=== PATIENT | female | born 1955 | race Caucasian/White ===

== ENCOUNTER 2019-11-09 20:08 | Emergency (ER) | payer BC, OTHER ==
--- OUTSIDE RECORDS SUMMARY | 2019-11-09 20:10 | XMS REPORT | Continuity of Care Document ---
:1955 Author Organization [facility] t Address [address] [place] [address] Care Team Providers Name Role Phone Isrrael LÓPEZ Attending Clinician Problems This patient has no known problems. Allergies, Adverse Reactions, Alerts This patient has no known allergies or adverse reactions. Medications This patient has no known medications. Procedures This patient has no known procedures. Encounters Start End Encounter Admission Attending Care Care Encounter Source Date/Time Date/Time Type Type Clinicians Facility Department ID 2018-10-28 2018-10-28 [facility] Isrrael [facility] [id number] 13:37:02 13:59:00 [facility] [id number] Surgical [id number] Specialti [id number] [place] Results This patient has no known results.
[2019-11-09 21:15] LABS: Absolute Lymphocytes (CBC) 3.2 K/uL (0.7-4.9); Basophils % 1.1 % (0-1.3); Hematocrit 42.4 % (36.0-45.0); Lymphocytes % 35.2 % (15.3-44.8); MPV 8.9 fL (7.6-11.3); RBC Red Blood Cell Count 4.91 M/uL (3.86-4.86)
[2019-11-09 21:19] LABS: Protime INR 0.89
[2019-11-09 21:41] LABS: ALT/SGPT 26 U/L (12-78); AST/SGOT 22 U/L (15-37); Albumin 3.2 g/dL (3.4-5.0); Alkaline Phosphatase 111 U/L (45-117); BUN Blood Urea Nitrogen 18 mg/dL (7-18); Bicarbonate 27 mmol/L (21-32); Bilirubin Direct < 0.1 mg/dL (0-0.2); Bilirubin Total 0.2 mg/dL (0.2-1.0); CKMB Creatine Kinase MB 1.1 ng/mL (0.3-3.6); Creatine Phosphokinase 113 U/L (26-192); Glucose Level 104 mg/dL (74-106); Lipase 112 U/L (73-393); Magnesium 1.8 mg/dL (1.8-2.4); NT PRO-BNP 132 pg/mL (<125); Potassium 4.2 mmol/L (3.5-5.1); Protein, Total 7.3 g/dL (6.4-8.2); Sodium Level 144 mmol/L (136-145); Troponin (Emerg Dept Use Only) < 0.02 ng/mL (0.0-0.045)
--- NOTE | 2019-11-09 23:54 | EDPHYS ---
Physician Documentation [facility] Name: Genet Grjialva Age: 64 yrs Sex: Female : 1955 Arrival Date: 11/09/2019 Time: 20:13 Bed 16 Private MD: ED Physician Norris Vázquez HPI: 11/08 20:58 This 64 yrs old Female presents to ER via Ambulatory with complaints of mh7 Breathing Difficulty. 20:58 The patient has shortness of breath with light activity. Onset: The symptoms/episode mh7 began/occurred 2 week(s) ago. Duration: The symptoms are intermittent, with no pattern. The patient's shortness of breath is aggravated by exertion, is alleviated by nothing. Associated signs and symptoms: Pertinent positives: non-productive cough, dizziness, Pertinent negatives: chest pain, productive cough, diaphoresis, fever, hemoptysis, loss of consciousness, nausea, numbness in extremities, visual changes, vomiting. Severity of symptoms: At their worst the symptoms were moderate yesterday, in the emergency department the symptoms have improved moderately. The patient has experienced similar episodes in the past, several times. Patient states that she ran out of her medications about one month ago. Her PCP is no longer seeing patient's so she has not been able to get refills. She states that she has had SOB for the past 2 weeks. She has also had a non productive cough. Denies any fever, chest pain, abdominal pain, nausea, vomiting, diarrhea, dysuria, sick contacts, or recent travel.. Historical: - Allergies: 20:35 Codeine; bb - Home Meds: 20:35 Bystolic 5 mg oral tab [Active]; montelukast 10 mg oral tab [Active]; pravastatin 20 mg bb oral tab [Active]; Symbicort inhalation inhalation [Active]; hydrochlorothiazide 25 mg oral tab [Active]; omeprazole 40 mg Oral cpDR [Active]; duloxetine 20 mg oral cpDR [Active]; phentermine 37.5 mg oral tab [Active]; paroxetine HCl 10 mg oral tab [Active]; pravastatin 20 mg oral tab [Active]; - PMHx: 20:35 allergies; Hypertension; bb - Immunization history:: Adult Immunizations unknown. - Social history:: Smoking status: Patient reports the use of cigarette tobacco products, Patient/guardian denies using tobacco, the patient reports quitting approximately 1 years ago, Patient/guardian denies using alcohol, street drugs. ROS: 20:58 Constitutional: Negative for fever, chills, and weight loss, Eyes: Negative for injury, mh7 pain, redness, and discharge, ENT: Negative for injury, pain, and discharge, Neck: Negative for injury, pain, and swelling, Cardiovascular: Negative for chest pain, palpitations, and edema, Abdomen/GI: Negative for abdominal pain, nausea, vomiting, diarrhea, and constipation, Back: Negative for injury and pain, : Negative for injury, bleeding, discharge, and swelling, MS/Extremity: Negative for injury and deformity, Skin: Negative for injury, rash, and discoloration, Neuro: Negative for headache, weakness, numbness, tingling, and seizure, Psych: Negative for depression, anxiety, suicide ideation, homicidal ideation, and hallucinations, Allergy/Immunology: Negative for hives, rash, and allergies, Endocrine: Negative for neck swelling, polydipsia, polyuria, polyphagia, and marked weight changes, Hematologic/Lymphatic: Negative for swollen nodes, abnormal bleeding, and unusual bruising. Exam: 20:58 Constitutional: This is a well developed, well nourished patient who is awake, alert, mh7 and in no acute distress. Head/Face: Normocephalic, atraumatic. Eyes: Pupils equal round and reactive to light, extra-ocular motions intact. Lids and lashes normal. Conjunctiva and sclera are non-icteric and not injected. Cornea within normal limits. Periorbital areas with no swelling, redness, or edema. ENT: Nares patent. No nasal discharge, no septal abnormalities noted. Tympanic membranes are normal and external auditory canals are clear. Oropharynx with no redness, swelling, or masses, exudates, or evidence of obstruction, uvula midline. Mucous membranes moist. Neck: Trachea midline, no thyromegaly or masses palpated, and no cervical lymphadenopathy. Supple, full range of motion without nuchal rigidity, or vertebral point tenderness. No Meningismus. Chest/axilla: Normal chest wall appearance and motion. Nontender with no deformity. No lesions are appreciated. 20:58 Respiratory: Lungs have equal breath sounds bilaterally, clear to auscultation and percussion. No rales, rhonchi or wheezes noted. No increased work of breathing, no retractions or nasal flaring. Abdomen/GI: Soft, non-tender, with normal bowel sounds. No distension or tympany. No guarding or rebound. No evidence of tenderness throughout. Back: No spinal tenderness. No costovertebral tenderness. Full range of motion. Skin: Warm, dry with normal turgor. Normal color with no rashes, no lesions, and no evidence of cellulitis. MS/ Extremity: Pulses equal, no cyanosis. Neurovascular intact. Full, normal range of motion. Neuro: Awake and alert, GCS 15, oriented to person, place, time, and situation. Cranial nerves II-XII grossly intact. Motor strength 5/5 in all extremities. Sensory grossly intact. Cerebellar exam normal. Normal gait. Psych: Awake, alert, with orientation to person, place and time. Behavior, mood, and affect are within normal limits. 20:58 Cardiovascular: Rate: tachycardic, Rhythm: regular, Pulses: no pulse deficits are appreciated, Heart sounds: normal, normal S1and S2, Edema: is not appreciated, JVD: is not appreciated. Vital Signs: 20:27 BP 148 / 102; Pulse 120; Resp 20 S; Temp 98.4(O); Pulse Ox 98% on R/A; Weight 113.4 kg bb (R); Height 5 ft. 3 in. (160.02 cm) (R); Pain 7/10; 21:30 BP 117 / 88; Pulse 108; Resp 18; Pulse Ox 96% on R/A; wh 22:34 BP 129 / 84; Pulse 103; Resp 16; Pulse Ox 95% on R/A; wh 23:36 BP 129 / 64; Pulse 109; Resp 16 S; Pulse Ox 95% on R/A; bb 11/09 00:10 BP 124 / 72; Pulse 99; Resp 18; Pulse Ox 96% on R/A; wh 11/08 20:27 Body Mass Index 44.29 (113.40 kg, 160.02 cm) MDM: 11/08 20:40 Patient medically screened. [facility] 23:48 Differential diagnosis: Anemia Anxiety Reaction asthma, Bronchitis CHF exacerbation, 7 Chronic Obstructive Pulmonary Disease Myocardial Infarction pneumonia, Pneumothorax Psychogenic pulmonary edema, Pulmonary Embolism reactive airway disease. Data reviewed: vital signs, nurses notes, lab test result(s), cardiac enzymes, CBC, electrolytes, urinalysis, EKG, radiologic studies, plain films. Data interpreted: environmental monitoring specialist: rate is 96 beats/min, rhythm is normal sinus rhythm, regular, Interpretation: normal rate, normal rhythm, Pulse oximetry: on room air is 96 %. Interpretation: normal. Counseling: I had a detailed discussion with the patient and/or guardian regarding: the historical points, exam findings, and any diagnostic results supporting the discharge/admit diagnosis, lab results, radiology results, the need for outpatient follow up, to return to the emergency department if symptoms worsen or persist or if there are any questions or concerns that arise at home. Response to treatment: the patient's symptoms have resolved after treatment, the patient's blood pressure is in an acceptable range, mental status has returned to baseline, the patient no longer shows bradycardia, the patient is not short of breath, the patient is not tachycardic, the patient's pain is gone, the patient's temperature has normalized, the patient is now symptom free. 11/09 07:26 ED course: Well appearing, NAD, VSS. Discussed all test results with the patient. She [facility] requests to be discharged from the ED. She agreed to return to the ED if worsening of symptoms or other concerns.. 11/08 20:42 Order name: Blood Culture Adult (2) [facility] 11/08 20:42 Order name: BMP; Complete Time: 21:56 [facility] 11/08 20:42 Order name: CBC with Diff; Complete Time: 21:56 [facility] 11/08 20:42 Order name: Ckmb; Complete Time: 21:56 [facility] 11/08 20:42 Order name: CPK; Complete Time: 21:56 [facility] 11/08 20:42 Order name: D-Dimer; Complete Time: 21:56 [facility] 11/08 20:42 Order name: Hepatic Function; Complete Time: 21:56 [facility] 11/08 20:42 Order name: Lipase; Complete Time: 21:56 [facility] 11/08 20:42 Order name: Magnesium; Complete Time: 21:56 [facility] 11/08 20:42 Order name: NT PRO-BNP; Complete Time: 21:56 [facility] 11/08 20:42 Order name: PT-INR; Complete Time: 21:56 [facility] 11/08 20:42 Order name: Ptt, Activated; Complete Time: 21:56 [facility] 11/08 20:42 Order name: Troponin (emerg Dept Use Only); Complete Time: 21:56 [facility] 11/08 20:42 Order name: Chest Single View XRAY [facility] 11/08 20:42 Order name: EKG; Complete Time: 20:43 [facility] 11/08 20:42 Order name: Cardiac monitoring; Complete Time: 21:00 [facility] 11/08 20:42 Order name: EKG - Nurse/Tech; Complete Time: 21:00 [facility] 11/08 20:42 Order name: IV Saline Lock; Complete Time: 21:00 [facility] 11/08 20:42 Order name: Labs collected and sent; Complete Time: 21:00 [facility] 11/08 20:42 Order name: O2 Per Protocol; Complete Time: 21:00 [facility] 11/08 20:42 Order name: O2 Sat Monitoring; Complete Time: 21:00 [facility] Administered Medications: No medications were administered Disposition: 07:26 Co-signature as Attending Physician, Norris Vázquez MD. [facility] Disposition: 11/09/19 23:53 Discharged to Home. Impression: Dyspnea, Medication Noncompliance. - Condition is Stable. - Discharge Instructions: Shortness of Breath, [id number]. - Prescriptions for Bystolic 5 mg Oral tablet - take 1 tablet by ORAL route once daily; 30 tablet. Symbicort 80- 4.5 mcg/actuation Inhalation HFA aerosol inhaler - inhale 2 puff by INHALATION route 2 times per day; 1 unit. montelukast 10 mg Oral tablet - take 1 tablet by ORAL route once daily; 30 tablet. omeprazole 40 mg Oral capsule,delayed release(DR/EC) - take 1 capsule by ORAL route once daily; 15 capsule. Hydrochlorothiazide 25 mg Oral Tablet - take 1 tablet by ORAL route once daily .; 30 tablet. - Medication Reconciliation Form, Thank You Letter, Antibiotic Education, Prescription Opioid Use form. - Follow up: Abhi Frank MD; When: 2 - 3 days; Reason: Worsening of condition, Recheck today's complaints. - Problem is an ongoing problem. - Symptoms have improved. Signatures: Dispatcher [employer] EDDebo Goldsmith RN RN bb Habalo, Winsy wh Holmes, Maurice, MD MD [facility] Corrections: (The following items were deleted from the chart) 00:17 11/08 23:53 11/09/2019 23:53 Discharged to Home. Impression: Dyspnea; Medication wh Noncompliance. Condition is Stable. Forms are Medication Reconciliation Form, Thank You Letter, Antibiotic Education, Prescription Opioid Use. Follow up: Abhi Frank; When: 2 - 3 days; Reason: Worsening of condition, Recheck today's complaints. Problem is an ongoing problem. Symptoms have improved. mh7
--- NOTE | 2019-11-09 23:54 | ER ---
Nurse's Notes [facility] Name: Genet Grijalva Age: 64 yrs Sex: Female : 1955 Arrival Date: 11/09/2019 Time: 20:13 Bed 16 Private MD: Diagnosis: Dyspnea;Medication Noncompliance Presentation: 11/08 20:27 Chief complaint: Patient states: she has been having difficulty breathing for weeks she bb has been out of her medicine for a month and does not have a PCP she also feels like there is a stick in her ear poking into her brain making her feel dizzy. Coronavirus screen: Client presents with at least one sign or symptom that may indicate coronavirus-19. Standard/surgical mask placed on the client. Ebola Screen: No symptoms or risks identified at this time. Initial Sepsis Screen: Does the patient meet any 2 criteria? No. Patient's initial sepsis screen is negative. Does the patient have a suspected source of infection? No. Patient's initial sepsis screen is negative. Risk Assessment: Do you want to hurt yourself or someone else? Patient reports no desire to harm self or others. Onset of symptoms was September 2019. 20:27 Method Of Arrival: Ambulatory bb 20:27 Acuity: DEO 3 bb Triage Assessment: 20:30 Respiratory: Onset: The symptoms/episode began/occurred at an unknown time. the patient wh reports symptoms have resolved. Historical: - Allergies: 20:35 Codeine; bb - Home Meds: 20:35 Bystolic 5 mg oral tab [Active]; montelukast 10 mg oral tab [Active]; pravastatin 20 mg bb oral tab [Active]; Symbicort inhalation inhalation [Active]; hydrochlorothiazide 25 mg oral tab [Active]; omeprazole 40 mg Oral cpDR [Active]; duloxetine 20 mg oral cpDR [Active]; phentermine 37.5 mg oral tab [Active]; paroxetine HCl 10 mg oral tab [Active]; pravastatin 20 mg oral tab [Active]; - PMHx: 20:35 allergies; Hypertension; bb - Immunization history:: Adult Immunizations unknown. - Social history:: Smoking status: Patient reports the use of cigarette tobacco products, Patient/guardian denies using tobacco, the patient reports quitting approximately 1 years ago, Patient/guardian denies using alcohol, street drugs. Screenin:00 Abuse screen: Denies threats or abuse. Denies injuries from another. Nutritional wh screening: No deficits noted. Tuberculosis screening: No symptoms or risk factors identified. Fall Risk None identified. Assessment: 20:30 General: Appears well groomed, Behavior is calm, cooperative, appropriate for age. wh Pain: Denies pain. Neuro: Level of Consciousness is awake, alert, obeys commands, Oriented to person, place, time, situation, Appropriate for age Reports dizziness. Cardiovascular: Heart tones S1 S2 Rhythm is sinus tachycardia. Respiratory: Reports shortness of breath cough that is Airway is patent Respiratory effort is even, unlabored, Respiratory pattern is regular, symmetrical, Breath sounds are clear bilaterally. GI: Abdomen is round non-distended. : No signs and/or symptoms were reported regarding the genitourinary system. EENT: No signs and/or symptoms were reported regarding the EENT system. Derm: Skin is intact, is healthy with good turgor, Skin is pink, warm \T\ dry. normal. Musculoskeletal: Circulation, motion, and sensation intact. 21:31 Reassessment: No changes from previously documented assessment. Patient and/or family wh updated on plan of care and expected duration. Pain level reassessed. Patient is alert, oriented x 3, equal unlabored respirations, skin warm/dry/pink. 22:32 Reassessment: Patient and/or family updated on plan of care and expected duration. Pain wh level reassessed. Patient is alert, oriented x 3, equal unlabored respirations, skin warm/dry/pink. 11/09 00:10 Reassessment: Patient and/or family updated on plan of care and expected duration. Pain wh level reassessed. Patient is alert, oriented x 3, equal unlabored respirations, skin warm/dry/pink. Vital Signs: 11/08 20:27 BP 148 / 102; Pulse 120; Resp 20 S; Temp 98.4(O); Pulse Ox 98% on R/A; Weight 113.4 kg bb (R); Height 5 ft. 3 in. (160.02 cm) (R); Pain 7/10; 21:30 BP 117 / 88; Pulse 108; Resp 18; Pulse Ox 96% on R/A; wh 22:34 BP 129 / 84; Pulse 103; Resp 16; Pulse Ox 95% on R/A; wh 23:36 BP 129 / 64; Pulse 109; Resp 16 S; Pulse Ox 95% on R/A; 11/09 00:10 BP 124 / 72; Pulse 99; Resp 18; Pulse Ox 96% on R/A; 11/08 20:27 Body Mass Index 44.29 (113.40 kg, 160.02 cm) ED Course: 11/08 20:13 Patient arrived in ED. 20:17 Norris Vázquez MD is Attending Physician. [facility] 20:25 Merced Gauthier is Primary Nurse. 20:30 Triage completed. bb 20:35 Arm band placed on Patient placed in an exam room, on a stretcher, on cardiac cath lab radiology technologist, bb on pulse oximetry. EKG completed in triage. Results shown to MD. 20:50 No provider procedures requiring assistance completed. Inserted saline lock: 20 gauge wh in left antecubital area, using aseptic technique. Blood collected. 21:00 Patient has correct armband on for positive identification. Placed in gown. Bed in low wh position. Call light in reach. Side rails up X 1. pasting machine offbearer on. Pulse ox on. NIBP on. 22:43 Chest Single View XRAY In Process Unspecified. EDWV 23:52 Abhi Frank MD is Referral Physician. [facility] 11/09 00:15 IV discontinued, intact, bleeding controlled, No redness/swelling at site. Administered Medications: No medications were administered Outcome: 11/08 23:53 Discharge ordered by . [facility] 11/09 00:15 Discharged to home ambulatory. Condition: stable Discharge instructions given to patient, Instructed on discharge instructions, follow up and referral plans. medication usage, POC Demonstrated understanding of instructions, follow-up care, medications, POC Prescriptions given X X5 00:17 Patient left the ED. Signatures: Dispatcher [employer] EDMS Elsa León Brenda, RN RN Merced Jasso Norris Vázquez MD MD [facility]
--- NOTE | 2019-11-10 13:38 | RAD REPORT ---
EXAM DESCRIPTION: RAD - Chest Single View - 11/09/2019 10:42 pm CLINICAL HISTORY: SOB COMPARISON: None. FINDINGS: Single frontal radiograph view of the chest. Large body habitus. Cardiomediastinal silhouette: Normal size and contour. Lungs: No consolidation, pneumothorax, or pleural effusion. Bones: No acute osseous abnormality. Leads overlie the chest. Upper abdomen: No abnormality identified. IMPRESSION: 1. No acute pulmonary process identified. Electronically signed by: Jesse Gonzalez 11/09/2019 10:53 PM CDT Due to temporary technical issues with the PACS/Fluency reporting system, reports are being signed by the in house radiologist without review as a courtesy to ensure prompt reporting. The interpreting r adiologist is fully responsible for the content of the report.
== END 2019-11-10 00:17 | disposition home or self-care (01) ==
LOC: ER 20:08
DX: R06.00 Dyspnea, unspecified (principal); I10 Essential (primary) hypertension; J30.2 Other seasonal allergic rhinitis; F17.210 Nicotine dependence, cigarettes, uncomplicated; Z91.14 Patient's other noncompliance with medication regimen; Z88.6 Allergy status to analgesic agent
CPT/HCPCS: 36415; 71045; 80048; 80076; 82550; 82553; 83690; 83735; 83880; 84484; 85025; 85379; 85610; 85730; 87040; 93005; 99284

== ENCOUNTER 2021-10-04 19:45 | Emergency (ER) | payer OTHER ==
[2021-10-04] MEDS ORDERED: NA CHLORIDE 0.9% 1,000 ML ONE (20:34)
[2021-10-04] MEDS ORDERED: ONDANSETRON 4 MG/2 ML VIAL ONE (20:35)
[2021-10-04] MEDS ORDERED: FAMOTIDINE 20 MG/2 ML VIAL IV ONE (20:36)
[2021-10-04 20:57] LABS: Absolute Lymphocytes (CBC) 2.4 K/uL (0.7-4.9); Hematocrit 44.7 % (36.0-45.0); Lymphocytes % 26.3 % (15.3-44.8); MCV 86.7 fL (80-100); MPV 8.5 fL (7.6-11.3); RBC Red Blood Cell Count 5.16 M/uL (3.86-4.86)
[2021-10-04 21:16] LABS: Albumin 3.3 g/dL (3.4-5.0); Bilirubin Total 0.4 mg/dL (0.2-1.0); Potassium 3.4 mmol/L (3.5-5.1); Protein, Total 7.3 g/dL (6.4-8.2)
--- NOTE | 2021-10-04 21:51 | RAD REPORT ---
EXAM DESCRIPTION: RAD - Chest Single View - 10/04/2021 9:46 pm CLINICAL HISTORY: COUGH Chest pain. COMPARISON: Chest Pa And Lat (2 Views) dated 12/04/2020; Chest Single View dated 11/09/2019 FINDINGS: Portable technique limits examination quality. The lungs are grossly clear. The heart is normal in size. No displaced fractures. IMPRESSION: No acute intrathoracic process suspected.
[2021-10-05] MEDS ORDERED: POTASSIUM 25 MEQ EFFERV TAB ONE (00:45)
[2021-10-05 00:51] LABS: Urine Blood Negative (Negative); Urine Glucose Negative (Negative); Urine Protein Negative (Negative); Urine Specific Gravity 1.015 (1.005-1.030); Urine pH 5.5 (5.0-7.0)
[2021-10-05] MEDS ORDERED: FENTANYL CITR 100 MCG/2 ML ONE (01:23)
--- NOTE | 2021-10-05 01:30 | EDPHYS ---
Physician Documentation [facility] Name: Genet Grijalva Age: 66 yrs Sex: Female : 1955 Arrival Date: 10/04/2021 Time: 19:53 Bed 18 Private MD: ED Physician Norris Vázquez HPI: 10/04 20:20 This 66 yrs old Female presents to ER via Ambulatory with complaints of Breathing cp Difficulty, Nausea, Chest Pain, General Weakness. 20:20 The patient has shortness of breath at rest. cp 20:20 Onset: The symptoms/episode began/occurred several days ago. cp 20:20 Duration: The symptoms are continuous, and are steadily getting worse. Associated signs cp and symptoms: Pertinent positives: chest pain, non-productive cough, nausea, Pertinent negatives: diaphoresis, dizziness, fever, hemoptysis. Severity of symptoms: in the emergency department the symptoms are unchanged despite home interventions. Historical: - Allergies: 20:14 Codeine; vc1 - Home Meds: 20:19 Bystolic 5 mg Oral tab [Active]; duloxetine 20 mg Oral cpDR [Active]; vc1 hydrochlorothiazide 25 mg Oral tab [Active]; montelukast 10 mg Oral tab [Active]; omeprazole 40 mg Oral cpDR [Active]; paroxetine HCl 10 mg Oral tab [Active]; phentermine 37.5 mg Oral tab [Active]; pravastatin 20 mg Oral tab [Active]; Symbicort inhalation [Active]; - PMHx: 20:14 allergies; Hypertension; vc1 - PSHx: 20:14 Cholecystectomy; Hysterectomy; vc1 - Immunization history:: Adult Immunizations up to date, Client reports receiving the 2nd dose of the Covid vaccine. - Social history:: Smoking status: Patient denies any tobacco usage or history of. ROS: 20:25 Constitutional: Negative for body aches, chills, fever, poor PO intake. cp 20:25 Eyes: Negative for injury, pain, redness, and discharge. cp 20:25 ENT: Negative for drainage from ear(s), ear pain, difficulty swallowing, difficulty handling secretions. 20:25 Cardiovascular: Positive for chest pain, Negative for edema, palpitations. 20:25 Respiratory: Positive for cough, with no reported sputum, shortness of breath. 20:25 Abdomen/GI: Positive for abdominal pain, nausea, Negative for vomiting, diarrhea, constipation. 20:25 Back: Positive for flank pain, on the right. 20:25 Skin: Negative for cellulitis, rash. 20:25 Neuro: Positive for weakness, Negative for altered mental status, numbness, syncope. 20:25 All other systems are negative. Exam: 20:07 ECG was reviewed by the Attending Physician. cp 20:30 Constitutional: The patient appears in no acute distress, alert, awake, cp non-diaphoretic, non-toxic, well developed, well nourished, obese, uncomfortable. 20:30 Head/Face: Normocephalic, atraumatic. cp 20:30 Eyes: Periorbital structures: appear normal, Conjunctiva: normal, no exudate, no injection, Sclera: no appreciated abnormality, Lids and lashes: appear normal, bilaterally. 20:30 ENT: External ear(s): are unremarkable, Nose: is normal, Mouth: Lips: moist, Oral mucosa: pink and intact, moist, Posterior pharynx: Airway: no evidence of obstruction, patent. 20:30 Neck: ROM/movement: is normal, is supple, without pain, no range of motions limitations, no meningismus. 20:30 Chest/axilla: Inspection: normal. 20:30 Cardiovascular: Rate: tachycardic, Rhythm: regular, Edema: is not appreciated, JVD: is not appreciated. 20:30 Respiratory: the patient does not display signs of respiratory distress, Respirations: normal, no use of accessory muscles, no retractions, labored breathing, is not present, Breath sounds: bronchial sounds, that are mild, are heard diffusely, stridor, is not appreciated, wheezing: is not appreciated. 20:30 Abdomen/GI: Inspection: obese Bowel sounds: active, all quadrants, Palpation: abdomen is soft and non-tender, in all quadrants. 20:30 Back: pain, that is moderate, of the right flank. 20:30 Skin: cellulitis, is not appreciated, no rash present. 20:30 Neuro: Orientation: to person, place \\T\\ time. Mentation: is normal, Motor: moves all fours, strength is normal, Sensation: is normal. Vital Signs: 20:11 BP 121 / 71; Pulse 111; Resp 24; Temp 98.1(O); Pulse Ox 94% on R/A; Weight 113.4 kg; vc1 Height 5 ft. 3 in. (160.02 cm); Pain 8/10; 21:09 BP 117 / 64; Pulse 109; Resp 14; Pulse Ox 91% on R/A; vc1 22:58 BP 120 / 81; Pulse 108; Resp 19; Pulse Ox 92% on R/A; vc1 10/05 01:28 BP 130 / 92; Pulse 100; Resp 18; Pulse Ox 92% on R/A; vc1 10/04 20:11 Body Mass Index 44.29 (113.40 kg, 160.02 cm) vc1 MDM: 10/04 20:14 Patient medically screened. cp 21:00 Differential diagnosis: Bronchitis CHF exacerbation, Chronic Obstructive Pulmonary cp Disease pneumonia, Pneumothorax pulmonary edema, Pulmonary Embolism Sepsis. 10/05 01:29 Data reviewed: vital signs, nurses notes, lab test result(s), radiologic studies, CT cp scan, plain films. 01:29 Test interpretation: by ED physician or midlevel provider: plain radiologic studies. cp Counseling: I had a detailed discussion with the patient and/or guardian regarding: the historical points, exam findings, and any diagnostic results supporting the discharge/admit diagnosis, lab results, radiology results, the need for outpatient follow up, an producer assistant, to return to the emergency department if symptoms worsen or persist or if there are any questions or concerns that arise at home. Response to treatment: the patient's symptoms have markedly improved after treatment. 10/04 20:17 Order name: CBC with Diff; Complete Time: 21:22 cp 10/04 22:10 Interpretation: Normal except: RBC 5.16. cp 10/04 20:17 Order name: CMP; Complete Time: 21:22 cp 10/04 22:10 Interpretation: Normal except: K 3.4; GLUC 189; BUN 22; GFR 47; ALB 3.3. cp 10/04 20:17 Order name: Lipase; Complete Time: 21:22 cp 10/04 20:17 Order name: Urine Microscopic Only cp 10/04 20:17 Order name: COVID-19 SARS RT PCR (Document "Date of Onset" if Symptomatic); Complete cp Time: 00:31 10/04 20:17 Order name: Influenza Screen (a \\T\\ B); Complete Time: 21:22 cp 10/04 20:17 Order name: XRAY Chest (1 view); Complete Time: 22:10 cp 10/04 22:12 Order name: CT Chest For PE Angio cp 10/04 22:12 Order name: CT Abd/Pelvis - IV Contrast Only cp 10/05 00:51 Order name: Urine Dipstick-Ancillary; Complete Time: 00:58 EDMS 10/05 01:04 Order name: Urine --Ancillary (enter results) 10/04 20:17 Order name: IV Saline Lock; Complete Time: 20:52 cp 10/04 20:17 Order name: Labs collected and sent; Complete Time: 20:52 cp 10/04 20: Order name: Urine Dipstick-Ancillary (obtain specimen); Complete Time: 00:52 cp 10/05 00:21 Order name: PO challenge; Complete Time: 00:28 cp EC/17 20:07 Rate is 110 beats/min. Rhythm is regular. ME interval is normal. QRS interval is cp prolonged at 120 msec. QT interval is normal. T waves are Inverted in leads aVR, V2, V3. Interpreted by me. Reviewed by me. Administered Medications: 20:35 Drug: Pepcid (famotidine) 20 mg Route: IVP; Site: right antecubital; vc1 21:26 Follow up: Response: No adverse reaction; Marked relief of symptoms vc1 20:51 Drug: NS 0.9% 1000 ml Route: IV; Rate: 500 bolus; Site: right antecubital; vc1 20:52 Drug: Zofran (Ondansetron) 4 mg Route: IVP; Site: right antecubital; vc1 21:26 Follow up: Response: No adverse reaction; Marked relief of symptoms; Nausea is decreasedvc1 21:22 Drug: Xopenex (levalbuterol) (3) 0.63 mg Route: Inhalation; vc1 21:22 Drug: SOLU-Medrol (methylPrednisoLONE) 125 mg Route: IVP; Site: right antecubital; vc1 21:25 Not Given (Duplicate Order): SOLU-Medrol (methylPrednisoLONE) 125 mg IVP once vc1 10/05 00:45 Drug: Potassium Effervescent Tablet 50 mEq Route: PO; vc1 01:28 Not Given (Pt driving homee): fentaNYL (PF) 25 mcg IVP once vc1 Disposition: 07:09 Co-signature as Attending Physician, Norris Vázquez MD. 7 Disposition Summary: 10/05/21 01:29 Discharge Ordered Location: Home cp Problem: new cp Symptoms: have improved cp Condition: Stable cp Diagnosis - COPD/ Chronic obstructive pulmonary disease with (acute) exacerbation cp - Dorsalgia, unspecified cp Followup: cp - With: Private Physician - When: 1 - 2 days - Reason: Recheck today's complaints Discharge Instructions: - Discharge Summary Sheet cp - Acute Back Pain, Adult cp - Chronic Obstructive Pulmonary Disease Exacerbation cp Forms: - Medication Reconciliation Form cp - Thank You Letter cp - Antibiotic Education cp - Prescription Opioid Use cp Prescriptions: - Cyclobenzaprine 10 mg Oral Tablet - take 1 tablet by ORAL route every 8 hours As needed; 20 tablet; Refills: 0, cp Product Selection Permitted - Prednisone 20 mg Oral Tablet - take 2 tablets by ORAL route once daily for 5 days; 10 tablet; Refills: 0, cp Product Selection Permitted Signatures: Dispatcher [employer] EDOH Matt Delgado PA PA cp Norris Vázquez MD MD [facility] Nelly Hutchins RN RN vc1 Corrections: (The following items were deleted from the chart) 10/04 20:15 20:14 PSHx: None; vc1 vc1
--- NOTE | 2021-10-05 01:30 | ER ---
Nurse's Notes [facility] Name: Genet Grijalva Age: 66 yrs Sex: Female : 1955 Arrival Date: 10/04/2021 Time: 19:53 Bed 18 Private MD: Diagnosis: COPD/ Chronic obstructive pulmonary disease with (acute) exacerbation;Dorsalgia, unspecified Presentation: 10/04 20:11 Chief complaint: Patient states: "I have felt sick for the last couple of weeks but the vc1 last few days I can't breath, I have a cough, horrible headache, my chest and side hurts.". Coronavirus screen: Vaccine status: Patient reports receiving the 2nd dose of the covid vaccine. Moderna cough unrelated to allergies, difficulty breathing, headache, muscle pain, shortness of breath, Client presents with at least one sign or symptom that may indicate coronavirus-19. Standard/surgical mask placed on the client. Provider contacted for isolation considerations. Ebola Screen: No symptoms or risks identified at this time. Initial Sepsis Screen: Does the patient meet any 2 criteria? RR > 20 per min. HR > 90 bpm. Yes Does the patient have a suspected source of infection? Yes: Productive cough/pneumonia Acute abdominal pain If YES to both, name of provider notified: Matt LYNNE Risk Assessment: Do you want to hurt yourself or someone else? Patient reports no desire to harm self or others. Onset of symptoms is unknown. 20:11 Method Of Arrival: Ambulatory vc1 20:11 Acuity: DEO 3 vc1 Triage Assessment: 20:16 General: Appears in no apparent distress. Behavior is cooperative, appropriate for age, vc1 anxious. Pain: Complains of pain in Head, chest, right flank, upper right abdomen Pain currently is 8 out of 10 on a pain scale. Quality of pain is described as sharp, stabbing, Pain began gradually. EENT: No deficits noted. Neuro: Level of Consciousness is awake, alert, obeys commands, Oriented to person, place, time, situation, Appropriate for age Reports headache. Cardiovascular: Capillary refill < 3 seconds Patient's skin is warm and dry. Respiratory: Reports shortness of breath at rest cough that is Airway is patent Respiratory effort is even, labored, Respiratory pattern is tachypnea Onset: The symptoms/episode began/occurred 3 days ago, the patient has moderate shortness of breath. GI: Reports upper abdominal pain, nausea, vomiting. : Reports pain in right flank(s), upper quadrant(s). Derm: No deficits noted. Musculoskeletal: No deficits noted. Historical: - Allergies: 20:14 Codeine; vc1 - Home Meds: 20:19 Bystolic 5 mg Oral tab [Active]; duloxetine 20 mg Oral cpDR [Active]; vc1 hydrochlorothiazide 25 mg Oral tab [Active]; montelukast 10 mg Oral tab [Active]; omeprazole 40 mg Oral cpDR [Active]; paroxetine HCl 10 mg Oral tab [Active]; phentermine 37.5 mg Oral tab [Active]; pravastatin 20 mg Oral tab [Active]; Symbicort inhalation [Active]; - PMHx: 20:14 allergies; Hypertension; vc1 - PSHx: 20:14 Cholecystectomy; Hysterectomy; vc1 - Immunization history:: Adult Immunizations up to date, Client reports receiving the 2nd dose of the Covid vaccine. - Social history:: Smoking status: Patient denies any tobacco usage or history of. Screenin:15 Abuse screen: Denies threats or abuse. Nutritional screening: No deficits noted. vc1 Tuberculosis screening: No symptoms or risk factors identified. Fall Risk None identified. Assessment: 20:18 Cardiovascular: Rhythm is sinus tachycardia. Respiratory: Respiratory effort is even, vc1 labored, Respiratory pattern is tachypnea Breath sounds with wheezes bilaterally. 21:25 Reassessment: Patient and/or family updated on plan of care and expected duration. Pain vc1 level reassessed. Patient is alert, oriented x 3, equal unlabored respirations, skin warm/dry/pink. Pt still SOB, nausea has decreased. 22:57 Reassessment: Patient and/or family updated on plan of care and expected duration. Pain vc1 level reassessed. Patient is alert, oriented x 3, equal unlabored respirations, skin warm/dry/pink. Patient states symptoms have improved. 10/05 01:00 Reassessment: Patient and/or family updated on plan of care and expected duration. Pain vc1 level reassessed. Patient is alert, oriented x 3, equal unlabored respirations, skin warm/dry/pink. Patient states feeling better. Patient states symptoms have improved. 01:57 Reassessment: Patient and/or family updated on plan of care and expected duration. Pain vc1 level reassessed. Patient is alert, oriented x 3, equal unlabored respirations, skin warm/dry/pink. Patient states feeling better. Patient states symptoms have improved. Vital Signs: 10/04 20:11 BP 121 / 71; Pulse 111; Resp 24; Temp 98.1(O); Pulse Ox 94% on R/A; Weight 113.4 kg; vc1 Height 5 ft. 3 in. (160.02 cm); Pain 8/10; 21:09 BP 117 / 64; Pulse 109; Resp 14; Pulse Ox 91% on R/A; vc1 22:58 BP 120 / 81; Pulse 108; Resp 19; Pulse Ox 92% on R/A; vc1 10/05 01:28 BP 130 / 92; Pulse 100; Resp 18; Pulse Ox 92% on R/A; vc1 10/04 20:11 Body Mass Index 44.29 (113.40 kg, 160.02 cm) vc1 ED Course: 10/04 19:53 Patient arrived in ED. [id number] 20:08 Matt Delgado PA is PHCP. cp 20:08 Norris Vázquez MD is Attending Physician. cp 20:14 Triage completed. vc1 20:18 Arm band placed on right wrist. vc1 20:19 Patient has correct armband on for positive identification. Client placed on continuous vc1 cardiac and pulse oximetry monitoring. NIBP monitoring applied. 20:35 Inserted saline lock: 22 gauge in right antecubital area, using aseptic technique. vc1 Blood collected. 20:51 Nelly Hutchins, RN is Primary Nurse. vc1 21:15 Oxygen administration via nasal cannula \\T\\ 2L/min. vc1 21:24 Response to oxygen therapy: symptoms improved. vc1 21:47 XRAY Chest (1 view) In Process Unspecified. EDMS 22:55 CT Chest For PE Angio In Process Unspecified. EDMS 22:55 CT Abd/Pelvis - IV Contrast Only In Process Unspecified. EDMS 10/05 01:56 No provider procedures requiring assistance completed. IV discontinued, intact, vc1 bleeding controlled, No redness/swelling at site. Pressure dressing applied. Administered Medications: 10/04 20:35 Drug: Pepcid (famotidine) 20 mg Route: IVP; Site: right antecubital; vc1 21:26 Follow up: Response: No adverse reaction; Marked relief of symptoms vc1 20:51 Drug: NS 0.9% 1000 ml Route: IV; Rate: 500 bolus; Site: right antecubital; vc1 20:52 Drug: Zofran (Ondansetron) 4 mg Route: IVP; Site: right antecubital; vc1 21:26 Follow up: Response: No adverse reaction; Marked relief of symptoms; Nausea is decreasedvc1 21:22 Drug: Xopenex (levalbuterol) (3) 0.63 mg Route: Inhalation; vc1 21:22 Drug: SOLU-Medrol (methylPrednisoLONE) 125 mg Route: IVP; Site: right antecubital; vc1 21:25 Not Given (Duplicate Order): SOLU-Medrol (methylPrednisoLONE) 125 mg IVP once vc1 10/05 00:45 Drug: Potassium Effervescent Tablet 50 mEq Route: PO; vc1 01:28 Not Given (Pt driving homee): fentaNYL (PF) 25 mcg IVP once vc1 Medication: 10/04 20:19 VIS not applicable for this client. vc1 Outcome: 10/05 01:29 Discharge ordered by . cp 01:56 Discharged to home ambulatory. vc1 01:56 Condition: good 01:56 Discharge instructions given to patient, Instructed on discharge instructions, follow up and referral plans. medication usage, Demonstrated understanding of instructions, follow-up care, medications, Prescriptions given X 2. 01:57 Patient left the ED. vc1 Signatures: Dispatcher [employer] EDMS Matt Delgado PA PA cp Jeffries, Jennifer [id number] Nelly Hutchins RN RN vc1 Corrections: (The following items were deleted from the chart) 10/04 20:15 20:14 PSHx: None; vc1 vc1 21:25 21:22 SOLU-Medrol (methylPrednisoLONE) 125 mg IVP in right antecubital vc1 vc1
[2021-10-05] MEDS ORDERED: LIDOCAINE 4% PATCH ONE (01:44)
[2021-10-05 02:04] VITALS: TEMP 98.1
[2021-10-05 02:07] VITALS: O2SAT 92
[2021-10-05 02:14] VITALS: BP 130/92
[2021-10-05 04:53] LABS: Urine Specific Gravity/Preg 1.015 (1.005-1.030)
--- NOTE | 2021-10-05 12:41 | EKG ---
Test Date: 2021-10-04 Test Time: 20:02:31 Radio Director: HEIDI MEASUREMENT RESULTS: Intervals: Rate: 110 [place]: 160 QRSD: 120 QT: 342 QTc: 462 [place]: P: 56 [place]: 160 QRS: 3 T: 38 INTERPRETIVE STATEMENTS: Sinus tachycardia Low voltage QRS Right bundle branch block Abnormal ECG Compared to ECG 11/09/2019 20:29:30 Low QRS voltage now present Myocardial infarct finding no longer present Electronically Signed On 10-05-21 12:39:40 CDT by Buck Holly
--- NOTE | 2021-10-05 14:52 | RAD REPORT ---
EXAM DESCRIPTION: CT - Chest For Pe Angio - 10/05/2021 6:40 am CLINICAL HISTORY: Chest pain. COMPARISON: Chest radiograph from November 09, 2019. TECHNIQUE: CTA of the chest was performed following intravenous administration of iodinated contrast . Axial soft tissue and lung window, and coronal and sagittal soft tissue window reconstructions were created and sent to PACS. 3D postprocessing was performed on an independent workstation, with images sent to PACS for subsequen t review. This exam was performed according to our departmental dose-optimization program, which includes autom ated exposure control, adjustment of the mA and/or kV according to patient size and/or use of iterati ve reconstruction technique. FINDINGS: Vascular: The pulmonary arteries are well-opacified to the segmental level. No CT evidence of acute pulmonary thromboembolism. No evidence of aortic aneurysm or dissection. Lungs and pleura: No pulmonary consolidation. No pleural effusion. No pneumothorax. Mediastinum and neck: Minimally prominent mediastinal and left hilar lymph nodes. Unremarkable appear ance of the thyroid gland. Cardiac: No cardiomegaly or pericardial effusion. Moderate amount of coronary artery calcifications. Abdomen: Hepatic steatosis. Cholecystectomy. Musculoskeletal: No concerning osseous abnormality. IMPRESSION: 1. No CTA evidence of acute pulmonary thromboembolism. 2. No pulmonary infiltrate or pleural effusions. 3. Nonspecific minimal prominence of the mediastinal and left hilar lymph nodes. Electronically signed by: Samanta Briones MD 10/04/2021 11:09 PM CDT Due to temporary technical issues with the PACS/Fluency reporting system, reports are being signed by the in house radiologists without review as a courtesy to insure prompt reporting. The interpreting radiologist is fully responsible for the content of the report.
--- NOTE | 2021-10-05 14:54 | RAD REPORT ---
EXAM DESCRIPTION: CT - Abdomen Pelvis W Contrast - 10/05/2021 6:39 am CLINICAL HISTORY: 66 years Female, Abdominal pain, acute, nonlocalized TECHNIQUE: Helical CT axial images are obtained from the lung bases to the pubic symphysis with IV c ontrast. No oral contrast was administered. Multiplanar reconstruction. This exam was performed accor ding to our departmental dose-optimization program, which includes automated exposure control, adjust ment of the mA and/or kV according to patient size and/or use of iterative reconstruction technique. COMPARISON: None. FINDINGS: LUNG BASES: No basilar consolidation or effusions. LIVER: Normal in size. Moderate diffuse decreased attenuation. No focal masses. HEPATOBILIARY: Status post cholecystectomy. No intra- or extrahepatic ductal dilatation. SPLEEN: Normal size. PANCREAS: Normal size and contour. No focal mass. ADRENAL GLANDS: Normal size. No adrenal masses. KIDNEYS: Bilateral kidneys are normal in size without obstructing calculi or hydronephrosis. No nep hrolithiasis. Left upper pole 1.6 cm simple renal cyst, no further workup is warranted. Posterior rig ht midpole cortical fat-containing 1.4 cm lesion compatible with angiomyolipoma versus focal cortical defect. BOWEL AND MESENTERY: No small or large bowel dilatation. No colonic diverticulosis. Normal appendix . No abnormal mesenteric lymphadenopathy. No free fluid or pneumoperitoneum. RETROPERITONEUM: Normal caliber abdominal aorta without aneurysm. No abnormal retroperitoneal lymphad enopathy. PELVIS: Urinary bladder is suboptimally distended. Status post hysterectomy. ABDOMINAL WALL: Tiny umbilical fat-containing hernia. BONES: No suspicious osseous lytic or blastic lesions seen. IMPRESSION: 1. No acute intra-abdominal or pelvic disease. 2. Moderate hepatic steatosis. 3. Status post cholecystectomy and hysterectomy. 4. 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 Electronically signed by: Herve Rachel MD 10/04/2021 11:46 PM CDT Due to temporary technical issues with the PACS/Fluency reporting system, reports are being signed by the in house radiologists without review as a courtesy to insure prompt reporting. The interpreting radiologist is fully responsible for the content of the report.
== END 2021-10-05 01:57 | disposition home or self-care (01) ==
LOC: ER 19:45
DX: J44.1 Chronic obstructive pulmonary disease with (acute) exacerbation (principal); M54.9 Dorsalgia, unspecified; I10 Essential (primary) hypertension; Z88.5 Allergy status to narcotic agent
CPT/HCPCS: 93005; 85025; 36415; 81025; 83690; 80053; 87804 ×2; 71275; 74177; 71045; U0003; Q9967; J3010; J2001; J7030; J2405; J3490; 81003; 81015; 96374; 96375; 99285

== ENCOUNTER 2021-11-15 07:39 | Inpatient (IN) | payer OTHER ==
--- OUTSIDE RECORDS SUMMARY | 2021-11-15 07:42 | XMS REPORT | Continuity of Care Document ---
:1955 Author Organization [facility] t Address [address] [place] [address] Care Team Providers Name Role Phone Doctor Unassigned, [place] Attending Clinician Unavailable Pcp, Patient Does Not Have A Attending Clinician [phone]- [phone] Ashley Johnson Attending Clinician Unknown, Attending Attending Clinician Unavailable Payers Payer Name Policy Type Policy Number Effective Date Expiration Date S ource Problems Condition Condition Condition Status Onset Resolution Last Treating Co mments Source Name Details Category Date Date Treatment Clinician Date Other Other Disease Active Univers chronic chronic 10-09 ity of [place]al[place] liver [place] liver 00 Medica l disease disease Branch Allergies, Adverse Reactions, Alerts Allergy Allergy Status Severity Reaction(s) Onset Inactive Treating Comm ents Source Name Type Date Date Clinician Janet Brunner Active Nausea Univers ty to and/or 07-10 ity of adverse Vomiting 00:00: [place] reaction 00 Medical s to [place] drug Social History Social Habit Start Date Stop Date Quantity Comments Source Tobacco use and 2018-10-28 2018-10-28 Never used Universit y of exposure 00:00:00 00:00:00 [facility] Cigarettes smoked 2018-10-28 2018-10-28 Univers ity of current (pack per 00:00:00 00:00:00 [facility] ) - Reported Branch Cigarette 2018-10-28 2018-10-28 University of pack-years 00:00:00 00:00:00 [facility] Alcohol intake 2018-10-28 2018-10-28 University 00:00:00 00:00:00 [facility] History of tobacco 2007-07-11 Cigarette Smoker University use 00:00:00 [facility] Sex Ass[birth year] Universit y of 00:00:00 00:00:00 [facility] Smoking Status Start Date Stop Date Source Former smoker 2018-10-28 00:00:00 2018-10-28 00:00:00 [facility] Medications Ordered Filled Start Stop Current Ordering Indication Dosage Frequency Signature Comments Components Source Medication Medication Date Date Medication? Clinician (SIG) Name Name PAROXETINE Yes 40mg Take 40 mg U nivers HCL ORAL 8-10 by mouth. ity of 18:59: [address] [place] Yes Take by Uni vers sodium 8-10 mouth. ity of (SINGULAIR 18:59: [place] ORAL) [facility] PAROXETINE Yes 40mg Take 40 mg U nivers HCL ORAL 8-10 by mouth. ity of 18:59: [address] [facility] Yes Take by Uni vers sodium 8-10 mouth. ity of (SINGULAIR 18:59: [place] ORAL) [address] [place] [address] PAROXETINE Yes 40mg Take 40 mg U nivers HCL ORAL 8-10 by mouth. ity of 18:59: [address] Yes Take by Uni vers sodium 8-10 mouth. ity of (SINGULAIR 18:59: [place] ORAL) [address] [place] [address] IBUPROFEN Yes 2 tablets Uni vers 200 MG ORAL 8-10 po prn ity of CAP 18:57: [address] ATENOLOL 50 Yes 1 tablet Un ekta MG ORAL TAB 8-10 po daily ity of 18:57: [address] LIBRAX Yes 1 tablet Univers (WITH 8-10 po prn ity of CLIDINIUM) 18:57: [address] BUSPIRONE Yes 1/2 tablet Un ekta 15 MG ORAL 8-10 po prn ity of TAB 18:57: [address] FOLIC ACID Yes 1 tablet Uni vers 1 MG ORAL 8-10 po daily ity of TAB 18:57: [address] MULTIVITAMI 2019- Yes 1 tablet Un ekta N & MINERAL 8-10 po daily ity of FORMULA 18:57: [address] VITAMIN C 2019- Yes 1 tablet Univ ers 1,000 MG 8-10 po daily ity of ORAL TAB 18:57: [address] VITAMIN E 2018- Yes 1 tablet Univ ers 1,000 UNIT 8-10 po daily ity o f ORAL TAB 18:57: [address] IBUPROFEN 2018- Yes 2 tablets Uni vers 200 MG ORAL 8-10 po prn ity of CAP 18:57: [address] ATENOLOL 50 2018- Yes 1 tablet Un ekta MG ORAL TAB 8-10 po daily ity of 18:57: [address] LIBRAX Yes 1 tablet Univers (WITH 8-10 po prn ity of CLIDINIUM) 18:57: [address] BUSPIRONE Yes 1/2 tablet Un ekta 15 MG ORAL 8-10 po prn ity of TAB 18:57: [address] FOLIC ACID 2018- Yes 1 tablet Uni vers 1 MG ORAL 8-10 po daily ity of TAB 18:57: [address] MULTIVITAMI Yes 1 tablet Un ekta N & MINERAL 8-10 po daily ity of FORMULA 18:57: [address] VITAMIN C 2018- Yes 1 tablet Univ ers 1,000 MG 8-10 po daily ity of ORAL TAB 18:57: [address] VITAMIN E Yes 1 tablet Univ ers 1,000 UNIT 8-10 po daily ity o f ORAL TAB 18:57: [address] IBUPROFEN 2018- Yes 2 tablets Uni vers 200 MG ORAL 8-10 po prn ity of CAP 18:57: [address] ATENOLOL 50 2018- Yes 1 tablet Un ekta MG ORAL TAB 8-10 po daily ity of 18:57: [address] LIBRAX Yes 1 tablet Univers (WITH 8-10 po prn ity of CLIDINIUM) 18:57: [address] BUSPIRONE Yes 1/2 tablet Un ekta 15 MG ORAL 8-10 po prn ity of TAB 18:57: [address] FOLIC ACID Yes 1 tablet Uni vers 1 MG ORAL 8-10 po daily ity of TAB 18:57: [address] MULTIVITAMI Yes 1 tablet Un ekta N & MINERAL 8-10 po daily ity of FORMULA 18:57: [address] VITAMIN C Yes 1 tablet Univ ers 1,000 MG 8-10 po daily ity of ORAL TAB 18:57: [address] VITAMIN E Yes 1 tablet Univ ers 1,000 UNIT 8-10 po daily ity o f ORAL TAB 18:57: [address] neomycin-po 2019- No [id number] 1[drp] Place 1 Univers lymyxin-dex 8-10 11-05 [id number] Drop in it y of amethasone 00:00: 04:59 left eye 4 [place] 3.5mg/mL-10 00 :00 (four) Medica l ,000 times Branch unit/mL-0.1 daily for % 7 days. ophthalmic suspension drops nebivolol 2017-03 Yes [id number] 2.5mg Take 1 Un ekta 2.5 mg 0-26 tablet by ity of tablet 00:00: mouth [place] [address] [facility] meclizine 2017-03 Yes [id number] 25mg Take 1 Univers 25 mg 0-26 105 tablet by ity of tablet 00:00: mouth 3 [place] 00 (three) Medical times [place] daily as needed for Dizziness or Nausea. nebivolol 2017-03 Yes [id number] 2.5mg Take 1 Un ekta 2.5 mg 0-26 tablet by ity of tablet 00:00: mouth [place] [address] [facility] meclizine 2017-03 Yes [id number] 25mg Take 1 Univers 25 mg 0-26 105 tablet by ity of tablet 00:00: mouth 3 [place] 00 (three) Medical times [place] daily as needed for Dizziness or Nausea. nebivolol 2017-03 Yes [id number] 2.5mg Take 1 Un ekta 2.5 mg 0-26 tablet by ity of tablet 00:00: mouth [place] 00 daily. [facility] meclizine 2017-03 Yes [id number] 25mg Take 1 Univers 25 mg 0-26 105 tablet by ity of tablet 00:00: mouth 3 [place] 00 (three) Medical times [place] daily as needed for Dizziness or Nausea. Vital Signs Vital Name Observation Time Observation Value Comments Source Systolic blood 2018-10-28 18:53:00 123 mm[Hg] Univer sity of pressure [place] [facility] Diastolic blood 2018-10-28 18:53:00 69 mm[Hg] Unive rsity of pressure [place] [facility] Heart rate 2018-10-28 18:53:00 93 /min [facility]i ty [facility] [place] [facility] Body temperature 2018-10-28 18:53:00 37.11 Sara Univ ersity of [place] [facility] Respiratory rate 2018-10-28 18:53:00 19 /min Univ ersity of [place] [facility] Body height 2018-10-28 18:53:00 160 cm [facility] [place] [facility] Body weight 2018-10-28 18:53:00 126.644 kg [facility] [place] [facility] BMI 2018-10-28 18:53:00 49.46 kg/m2 [facility]i ty [facility] [place] [facility] Oxygen saturation in 2018-10-28 18:53:00 96 /min University of Arterial blood by [place] Pulse oximetry Branch Systolic blood 2018-10-28 18:53:00 123 mm[Hg] Univer sity of pressure [place] [facility] Diastolic blood 2018-10-28 18:53:00 69 mm[Hg] Unive rsity of pressure [place] [facility] Heart rate 2018-10-28 18:53:00 93 /min [facility] [place] [facility] Body temperature 2018-10-28 18:53:00 37.11 Sara [facility] ersity of [place] [facility] Respiratory rate 2018-10-28 18:53:00 19 /min Univ ersity of [place] [facility] Body height 2018-10-28 18:53:00 160 cm [facility]i [facility] [place] [facility] Body weight 2018-10-28 18:53:00 126.644 kg [facility]i [facility] [place] [facility] BMI 2018-10-28 18:53:00 49.46 kg/m2 Universi ty of [place] [facility] Oxygen saturation in 2018-10-28 18:53:00 96 /min University of Arterial blood by [employer] nory Pulse oximetry Branch Procedures Procedure Date / Time Performed Performing Clinician [facility] e CLINIC RECORD / SMR 2020-11-03 05:01:00 Doctor Unassigned, No Un i[facility]ity of [place] Name Medical Branch Encounters Start End Encounter Admission Attending Care Care Encounter Source Date/Time Date/Time Type Type Clinicians Facility Department ID 2020-11-03 2020-11-03 Orders Doctor STEPHANIE [id number] Univers 00:00:00 00:00:00 Only Unassigned, LINDA [id number] ity of [place] [facility] [id number] Inderjit as [phone] [address] 2019-11-12 2019-11-12 Telephone Pcp, [facility] [id number] Univers 00:00:00 00:00:00 Patient Health [id number] it y of Does Not [place] [id number] [place] Have A Professio [phone] Oh dical nal [address] [place] [address] [facility] 2019-11-12 2019-11-12 Telephone Pcp, [facility] [id number] 00:00:00 00:00:00 Patient Health [id number] Does Not [place] [id number] Have A Professio [phone] nal [facility] Office Building [facility] 2018-10-28 2018-10-28 [place], Ashley [facility] [id number] [facility] 13:37:02 13:59:00 Care Unknown, Attending Health [id number] ity of Surgical [id number] Inderjit as Specialti [phone] Oh dical es 370 [facility] 2018-10-28 2018-10-28 [place], [facility] [id number] 13:37:02 13:59:00 Care [facility] [id number] Surgical [id number] Specialti [phone] es 370 [place] Results This patient has no known results.
[2021-11-15] MEDS ORDERED: LEVALBUTEROL 1.25 MG/3 ML NEB ONE (08:26)
[2021-11-15] MEDS ORDERED: MAGNESIUM SULFATE 1 gm IVPB 1 GM/100 ML BAG IV ONE (08:26)
[2021-11-15] MEDS ORDERED: IPRATROPIUM BROM 0.5MG/2.5ML ONE (08:27)
[2021-11-15 08:28] LABS: Absolute Lymphocytes (CBC) 3.6 K/uL (0.7-4.9); Hematocrit 46.2 % (36.0-45.0); Lymphocytes % 33.9 % (15.3-44.8); MCV 86.5 fL (80-100); MPV 8.5 fL (7.6-11.3); RBC Red Blood Cell Count 5.34 M/uL (3.86-4.86)
[2021-11-15] MEDS ORDERED: NA CHLORIDE 0.9% 500 ML ONE ×2 (08:33→10:24)
[2021-11-15] MEDS ORDERED: METHYLPREDNISOLONE 125 MG INJ ONE (08:33)
--- NOTE | 2021-11-15 08:35 | RAD REPORT ---
EXAM DESCRIPTION: RAD - Chest Single View - 11/15/2021 8:28 am CLINICAL HISTORY: DYSPNEA COMPARISON: <Comparisons> FINDINGS: Lines: None. Lungs: No evidence of edema or pneumonia. Pleural: No significant pleural effusions or pneumothorax. Cardiac: Stable size and configuration Bones: No acute fractures. Other: IMPRESSION: No acute cardiopulmonary disease.
[2021-11-15 08:38] LABS: Potassium 3.3 mmol/L (3.5-5.1); Troponin High Sensitivity 8.2 pg/mL (<58.9)
--- NOTE | 2021-11-15 10:04 | RAD REPORT ---
EXAM DESCRIPTION: CT - Chest For Pe Angio - 11/15/2021 9:46 am CLINICAL HISTORY: Pulmonary embolism (PE) suspected, positive D-dimer COMPARISON: Chest For Pe Angio dated 10/04/2021; Chest Single View dated 11/15/2021 TECHNIQUE: Dynamically enhanced axial 3 mm thick images of the chest were obtained during administra tion of <100> mL Isovue 370 IV contrast. Coronal and oblique reconstruction images were generated and reviewed. Exam utilizes a protocol for optimal evaluation of pulmonary arterial tree. Maximum intensity projections 3D imaging was utilized All CT scans are performed using dose optimization technique as appropriate and may include automated exposure control or mA/KV adjustment according to patient size. FINDINGS: Chest Wall: No suspicious thyroid nodules or pathologic lymphadenopathy. Lungs: No acute abnormality. Pleura: No significant effusions or pneumothorax. Mediastinum/cassandra: Reactive sized subcarinal lymph node. Small hiatal hernia. Mildly thickened distal esophagus. Pulmonary arteries/Aorta: No filling defect identified. No aortic aneurysm. Heart: No significant pericardial effusion. Normal heart size. Upper abdomen: No acute abnormality.Hepatic steatosis. Bones: No acute abnormality. Multilevel degenerative changes are present in the spine. IMPRESSION: Negative for pulmonary embolism. No other acute findings identified. A few incidental fi ndings noted above.
--- NOTE | 2021-11-15 10:48 | EDPHYS ---
Physician Documentation [facility] Name: Genet Grijalva Age: 66 yrs Sex: Female : 1955 Arrival Date: 11/15/2021 Time: 07:41 Bed 8 Private MD: ED Physician Moi Ray HPI: 11/15 08:21 This 66 yrs old Female presents to ER via Ambulatory with complaints of Breathing rn Difficulty. 09:11 The patient has shortness of breath at rest. rn 09:11 Onset: The symptoms/episode began/occurred yesterday. Duration: The symptoms are rn intermittent. The patient's shortness of breath is aggravated by coughing, exertion, light activity, is alleviated by nothing. Associated signs and symptoms: Pertinent positives: non-productive cough, Pertinent negatives: fever, hemoptysis, loss of consciousness. Severity of symptoms: At their worst the symptoms were moderate in the emergency department the symptoms are unchanged. The patient has experienced similar episodes in the past. The patient has not recently seen a physician. Pt reports SOB for "long time", but worse over last couple of days, no fever, + non-productive cough. Reports chest pain, central/right sided, radiates to both shoulders. No trauma. No hemoptysis. No hx of DVT/PE.. Historical: - Allergies: 07:49 Codeine; ss - Home Meds: 08:41 Bystolic 5 mg Oral tab [Active]; duloxetine 20 mg Oral cpDR [Active]; ph hydrochlorothiazide 25 mg Oral tab [Active]; montelukast 10 mg Oral tab [Active]; omeprazole 40 mg Oral cpDR [Active]; paroxetine HCl 10 mg Oral tab [Active]; phentermine 37.5 mg Oral tab [Active]; pravastatin 20 mg Oral tab [Active]; Symbicort inhalation [Active]; - PMHx: 07:49 allergies; Hypertension; ss - PSHx: 07:49 Cholecystectomy; hysterectomy; ss - Immunization history:: Adult Immunizations up to date. - Social history:: Smoking status: unknown. - Family history:: not pertinent. - Hospitalizations: : No recent hospitalization is reported. ROS: 09:11 Constitutional: Negative for fever, chills, and weight loss, Eyes: Negative for injury, rn pain, redness, and discharge, Neck: Negative for injury, pain, and swelling, Cardiovascular: + chest pain Respiratory: + sob Abdomen/GI: Negative for abdominal pain, nausea, vomiting, diarrhea, and constipation, Back: Negative for injury and pain, MS/Extremity: Negative for injury and deformity, Skin: Negative for injury, rash, and discoloration, Neuro: Negative for headache, weakness, numbness, tingling, and seizure. Exam: 09:11 Constitutional: This is a well developed, well nourished patient who is awake, alert, rn chooses to ambulate to room, winded Head/Face: Normocephalic, atraumatic. Cardiovascular: Tachycardic, regular. No pulse deficits. Respiratory: + mild tachypnea, faint wheezing noted bialterally, diminished at bases. Abdomen/GI: soft, non-tender Skin: Warm, dry MS/ Extremity: Pulses equal, no cyanosis. Neurovascular intact. Full, normal range of motion. Equal circumference. Neuro: Awake and alert, GCS 15, oriented to person, place, time, and situation. Cranial nerves II-XII grossly intact. Motor strength 5/5 in all extremities. Sensory grossly intact. Cerebellar exam normal. Normal gait. 09:15 ECG was reviewed by the Attending Physician. rn Vital Signs: 07:45 Pulse 136; Resp 20; Temp 98.0(TE); Pulse Ox 96% on R/A; Height 5 ft. 3 in. (160.02 cm); ss 08:12 BP 110 / 65; Pulse 131; Resp 22; Pulse Ox 94% on R/A; ph 08:45 BP 108 / 68; Pulse 115; Resp 16; Pulse Ox 99% on Nebulizer Mask; ph 10:21 BP 119 / 72; Pulse 118; Resp 18; Pulse Ox 93% on R/A; ph 11:59 BP 115 / 78; Pulse 112; Resp 20; Pulse Ox 91% on R/A; ph 13:00 BP 120 / 78; Pulse 109; Resp 20; Pulse Ox 96% on 2 lpm NC; ph 14:30 BP 112 / 69; Pulse 114; Resp 20; Pulse Ox 96% on 2 lpm NC; ph MDM: 07:43 Patient medically screened. rn 09:11 ED course: Pt with dyspnea and chest pain, clear CXR, sinus tachycardia and elevated rn d-dimer. Last creatinine normal and hemoconcentrated, will obtain CT PE protocol and hydrate given high likelihood of PE. . 10:39 Differential diagnosis: Chronic Obstructive Pulmonary Disease pneumonia, Pneumothorax rn pulmonary edema, Pulmonary Embolism CAD. 10:46 Data reviewed: vital signs, nurses notes, lab test result(s), EKG, radiologic studies, rn CT scan, plain films, and as a result, I will admit patient. Counseling: I had a detailed discussion with the patient and/or guardian regarding: the historical points, exam findings, and any diagnostic results supporting the discharge/admit diagnosis, lab results, radiology results, the need for further work-up and treatment in the hospital. Response to treatment: the patient's symptoms have mildly improved after treatment, and as a result, I will admit patient. Admission orders: after a detailed discussion of the patient's condition and case, the admit orders are written by me. ED course: Pt with neg ct PE, still reports chest pain, dyspnea, oxygen 91%, still tachycardic. Will admit for further care and evaluation.. 11/15 07:50 Order name: BMP; Complete Time: 08:56 rn 11/15 07:50 Order name: Blood Culture Adult (2) rn 11/15 07:50 Order name: CBC with Diff; Complete Time: 08:56 rn 11/15 07:50 Order name: D-Dimer; Complete Time: 08:56 rn 11/15 07:50 Order name: NT PRO-BNP; Complete Time: 08:56 rn 11/15 07:50 Order name: Troponin HS; Complete Time: 08:56 rn 11/15 08:12 Order name: XRAY Chest (1 view); Complete Time: 08:56 rn 11/15 08:57 Order name: CT Chest For PE Angio; Complete Time: 10:05 rn 11/15 10:31 Order name: SARS RAPID; Complete Time: 11:28 ss 11/15 11:55 Order name: ABG ph 11/15 07:50 Order name: EKG; Complete Time: 07:50 rn 11/15 07:50 Order name: Cardiac monitoring; Complete Time: 08:38 rn 11/15 07:50 Order name: EKG - Nurse/Tech; Complete Time: 08:38 rn 11/15 07:50 Order name: IV Saline Lock; Complete Time: 08:38 rn 11/15 07:50 Order name: Labs collected and sent; Complete Time: 08:38 rn 11/15 07:50 Order name: O2 Per Protocol; Complete Time: 08:37 rn 11/15 07:50 Order name: O2 Sat Monitoring; Complete Time: 08:37 rn 11/15 11:56 Order name: Diet Regular; Complete Time: 11:56 ph EC:15 Rate is 125 beats/min. Rhythm is regular. Left axis deviation noted. QRS is positive in rn lead I and negative in lead aVF. VT interval is normal. QRS interval is normal. QT interval is normal. No Q waves. T waves are Normal. No ST changes noted. Clinical impression: Sinus tachycardia. Interpreted by me. Reviewed by me. Administered Medications: 08:20 Drug: SOLU-Medrol (methylPrednisoLONE) 125 mg Route: IVP; Site: right antecubital; ph 10:19 Follow up: Response: No adverse reaction ph 08:20 Drug: NS 0.9% 500 ml Route: IV; Rate: bolus; Site: right antecubital; ph 10:20 Follow up: Response: No adverse reaction; IV Status: Completed infusion; IV Intake: ph 500ml 08:21 Drug: Magnesium Sulfate 1 grams Route: IVPB; Infused Over: 1 hrs; Site: right ph antecubital; 09:30 Follow up: Response: No adverse reaction; IV Status: Completed infusion ph 08:35 Drug: Xopenex (levalbuterol) (3) 1.25 mg Route: Inhalation; ph 10:19 Follow up: Response: No adverse reaction ph 10:19 Drug: NS 0.9% 500 ml Route: IV; Rate: bolus; Site: right antecubital; ph 12:30 Follow up: Response: No adverse reaction; IV Status: Completed infusion; IV Intake: ph 500ml 10:56 Drug: Motrin (ibuprofen) 600 mg Route: PO; ph 12:30 Follow up: Response: No adverse reaction ph Disposition Summary: 11/15/21 10:47 Hospitalization Ordered Hospitalization Status: Observation rn Provider: Luis Amin rn Location: Telemetry/MedSurg (observation) rn Condition: Stable rn Problem: an ongoing problem rn Symptoms: have improved rn Bed/Room Type: Standard rn Room Assignment: 203(11/15/21 14:27) dw Diagnosis - Dyspnea, unspecified rn - Chest pain, unspecified rn - Hypoxemia rn Forms: - Medication Reconciliation Form rn - SBAR form rn Signatures: Dispatcher [employer] Kami Michael RN Moi Campa MD MD rn Smirch, Shelby, RN RN ss Hall, Patricia, RN RN ph Corrections: (The following items were deleted from the chart) 14:27 10:47 rn [email or web address]
--- NOTE | 2021-11-15 10:48 | ER ---
Nurse's Notes [facility] Name: Genet Grijalva Age: 66 yrs Sex: Female : 1955 Arrival Date: 11/15/2021 Time: 07:41 Bed 8 Private MD: Diagnosis: Dyspnea, unspecified;Chest pain, unspecified;Hypoxemia Presentation: 11/15 07:45 Chief complaint: Patient states: "I can never breathe, but since I began moving out of my apartment and they are blowing dust around and I can't breath now.". Coronavirus screen: Client presents with at least one sign or symptom that may indicate coronavirus-19. Ebola Screen: Patient denies exposure to infectious person. Patient denies travel to an Ebola-affected area in the 21 days before illness onset. Initial Sepsis Screen: Does the patient meet any 2 criteria? HR > 90 bpm. Does the patient have a suspected source of infection? No. Patient's initial sepsis screen is negative. Risk Assessment: Do you want to hurt yourself or someone else? Patient reports no desire to harm self or others. Onset of symptoms is unknown. 07:45 Method Of Arrival: Ambulatory ss 07:45 Acuity: DEO 2 ss Historical: - Allergies: 07:49 Codeine; - Home Meds: 08:41 Bystolic 5 mg Oral tab [Active]; duloxetine 20 mg Oral cpDR [Active]; ph hydrochlorothiazide 25 mg Oral tab [Active]; montelukast 10 mg Oral tab [Active]; omeprazole 40 mg Oral cpDR [Active]; paroxetine HCl 10 mg Oral tab [Active]; phentermine 37.5 mg Oral tab [Active]; pravastatin 20 mg Oral tab [Active]; Symbicort inhalation [Active]; - PMHx: 07:49 allergies; Hypertension; ss - PSHx: 07:49 Cholecystectomy; hysterectomy; ss - Immunization history:: Adult Immunizations up to date. - Social history:: Smoking status: unknown. - Family history:: not pertinent. - Hospitalizations: : No recent hospitalization is reported. Screenin:41 Abuse screen: Denies threats or abuse. Denies injuries from another. Nutritional ph screening: No deficits noted. Tuberculosis screening: No symptoms or risk factors identified. Fall Risk None identified. Assessment: 07:49 Reassessment: While attempting to obtain BP during triage, pt suddenly became upset ss stating, "this is the only hospital where the blood pressure hurts and pinches! I'm leaving!" Pt ripped off blood pressure cord and stormed out of triage. Attempted to education patient importance of staying and having complete set of VS obtained, but patient became increasingly upset as she walked away. 07:55 Reassessment: Dr. Ray notified and went to ER lobby where patient was sitting to see ss if patient would still like to be seen. Pt willingly got up and walked with Dr. Ray to ER exam room 8. 08:45 General: Appears in no apparent distress. uncomfortable, Behavior is cooperative, ph appropriate for age, anxious. Pain: Complains of pain in back. Neuro: Level of Consciousness is awake, alert, obeys commands, Oriented to person, place, time, situation. Cardiovascular: Capillary refill < 3 seconds in bilateral fingers Patient's skin is warm and dry. Rhythm is sinus tachycardia. Respiratory: Reports shortness of breath at rest Airway is patent Respiratory effort is even, unlabored, Respiratory pattern is regular, symmetrical, Breath sounds are clear bilaterally. GI: No signs and/or symptoms were reported involving the gastrointestinal system. Derm: Skin is healthy with good turgor, Skin is pink, warm \\T\\ dry. Musculoskeletal: Circulation, motion, and sensation intact. Range of motion: intact in all extremities. 08:49 Reassessment: Dr. Ray notified of critical lab value. Ddimer. 10:21 Reassessment: Patient appears in no apparent distress at this time. Patient and/or ph family updated on plan of care and expected duration. Pain level reassessed. Patient is alert, oriented x 3, equal unlabored respirations, skin warm/dry/pink. 12:00 Reassessment: Patient appears in no apparent distress at this time. Patient and/or ph family updated on plan of care and expected duration. Pain level reassessed. Patient is alert, oriented x 3, equal unlabored respirations, skin warm/dry/pink. 13:00 Reassessment: Patient appears in no apparent distress at this time. Patient and/or ph family updated on plan of care and expected duration. Pain level reassessed. Patient is alert, oriented x 3, equal unlabored respirations, skin warm/dry/pink. Vital Signs: 07:45 Pulse 136; Resp 20; Temp 98.0(TE); Pulse Ox 96% on R/A; Height 5 ft. 3 in. (160.02 cm); ss 08:12 BP 110 / 65; Pulse 131; Resp 22; Pulse Ox 94% on R/A; ph 08:45 BP 108 / 68; Pulse 115; Resp 16; Pulse Ox 99% on Nebulizer Mask; ph 10:21 BP 119 / 72; Pulse 118; Resp 18; Pulse Ox 93% on R/A; ph 11:59 BP 115 / 78; Pulse 112; Resp 20; Pulse Ox 91% on R/A; ph 13:00 BP 120 / 78; Pulse 109; Resp 20; Pulse Ox 96% on 2 lpm NC; ph 14:30 BP 112 / 69; Pulse 114; Resp 20; Pulse Ox 96% on 2 lpm NC; ph ED Course: 07:41 Patient arrived in ED. rg4 07:43 Moi Ray MD is Attending Physician. rn 07:49 Triage completed. ss 08:10 Priyanka Woodward, STEPHANIE is Primary Nurse. ph 08:20 Initial lab(s) drawn, by me, sent to lab. First set of blood cultures drawn by me. ph Inserted saline lock: 20 gauge in right antecubital area, using aseptic technique. Blood collected. 08:22 EKG done, by ED staff. tm3 08:29 XRAY Chest (1 view) In Process Unspecified. EDMS 08:30 Second set of blood cultures drawn. tm3 08:41 Arm band placed on. ph 08:44 Patient has correct armband on for positive identification. Placed in gown. Bed in low ph position. Call light in reach. Side rails up X2. Client placed on continuous cardiac and pulse oximetry monitoring. NIBP monitoring applied. Door closed. Noise minimized. Warm blanket given. PO fluids given. Verbal reassurance given. 09:48 CT Chest For PE Angio In Process Unspecified. EDMS 10:47 Luis Amin is Hospitalizing Provider. rn 15:15 No provider procedures requiring assistance completed. Patient admitted, IV remains in ph place. Administered Medications: 08:20 Drug: SOLU-Medrol (methylPrednisoLONE) 125 mg Route: IVP; Site: right antecubital; ph 10:19 Follow up: Response: No adverse reaction ph 08:20 Drug: NS 0.9% 500 ml Route: IV; Rate: bolus; Site: right antecubital; ph 10:20 Follow up: Response: No adverse reaction; IV Status: Completed infusion; IV Intake: ph 500ml 08:21 Drug: Magnesium Sulfate 1 grams Route: IVPB; Infused Over: 1 hrs; Site: right ph antecubital; 09:30 Follow up: Response: No adverse reaction; IV Status: Completed infusion ph 08:35 Drug: Xopenex (levalbuterol) (3) 1.25 mg Route: Inhalation; ph 10:19 Follow up: Response: No adverse reaction ph 10:19 Drug: NS 0.9% 500 ml Route: IV; Rate: bolus; Site: right antecubital; ph 12:30 Follow up: Response: No adverse reaction; IV Status: Completed infusion; IV Intake: ph 500ml 10:56 Drug: Motrin (ibuprofen) 600 mg Route: PO; ph 12:30 Follow up: Response: No adverse reaction ph Medication: 08:45 VIS not applicable for this client. ph Intake: 10:20 IV: 500ml; Total: 500ml. ph 12:30 IV: 500ml; Total: 1000ml. ph Outcome: 10:47 Decision to Hospitalize by Provider. rn 15:17 Patient left the ED. ss 15:17 Admitted to Tele accompanied by tech, with oxygen, with chart. ph 15:17 Condition: stable 15:17 Instructed on the need for admit. Signatures: Dispatcher [employer] EDMS Johnny Gamble tm3 Moi Ray MD MD rn Smirch, Shelby, RN RN ss Hall, Patricia, RN RN ph Garcia, Rubi rg4 Corrections: (The following items were deleted from the chart) 10:20 10:19 Response: No adverse reaction; IV Status: Completed infusion; IV Intake: 500ml ph ph
[2021-11-15] MEDS ORDERED: IBUPROFEN 200 MG TAB PO ONE (11:02)
[2021-11-15] MEDS ORDERED: IBUPROFEN 400 MG TAB ONE (11:02)
[2021-11-15 11:06] LABS: SARS-CoV-2 Antigen Rapid Res Negative (Negative)
[2021-11-15 12:17] LABS: Arterial Blood Carboxyhemoglob 1.1 % (0-1.5); Blood Gas Oxyhemoglobin 90.5 % (94-97); Blood O2 Saturation 92.5 % (92-98.5)
--- NOTE | 2021-11-15 13:07 | P.HP ---
Certification for Inpatient Patient admitted to: Observation With expected LOS: <2 Midnights Practitioner: I am a practitioner with admitting privileges, knowledge of patient current condition, hospital course, and medical plan of care. Services: Services provided to patient in accordance with Admission requirements found in Title 42 Section 412.3 of the Code of Federal Regulations Patient History Date of Service: 11/15/21 Reason for admission: Shortness of breath History of Present Illness: 66-year-old morbidly obese woman with a history of seasonal allergies and hypertension presented to the emergency department with a complaint of progressive shortness of breath of a few days duration. Patient states that she is packing to move and her symptoms were exacerbated by exposure to dust. Work-up done in the emergency department has been unremarkable. CTA thorax shows no PE. Patient noted to be in sinus tachycardia, EKG demonstrating right bundle branch block at a rate of 125 bpm. Arterial blood gas demonstrates hypoxia on room air. Patient given IV Solu-Medrol, IV mag sulfate and lev albuterol inhaler in the ED with no improvement in hypoxia. Patient is hospit alized for further management. - Past Medical/Surgical History -: Hypertension -: Seasonal allergies -: Hysterectomy - Family History Father -: Cancer (Prostate) - Social History Smoking Status: Former smoker Alcohol use: No CD- Drugs: No Place of Residence: Home Review of Systems Other: Patient denied any chest pain, no productive cough. She denied any abdominal pain. She denied any fever. Except as documented, all other systems reviewed and negative. Physical Examination - Physical Exam General: Alert, In no apparent distress, Obese HEENT: Mucous membr. moist/pink, EOMI, Sclerae nonicteric Neck: Supple, JVD not distended Respiratory: Diminished (Bilateral, no rhonchi or wheezes, no crackles.) Cardiovascular: No edema, Normal S1 S2 (Tachycardia), No murmurs Capillary refill: <2 Seconds Gastrointestinal: Normal bowel sounds, Soft and benign, Non-distended, No tenderness Musculoskeletal: No swelling, No tenderness Integumentary: No rashes, No cyanosis Neurological: Normal speech, Normal strength at 5/5 x4 extr, Cranial nerves 3-12 intact Lymphatics: No axilla or inguinal lymphadenopathy - Studies Laboratory Data (last 24 hrs) 11/15/21 08:05: WBC 10.60, Hgb 15.6 H, Hct 46.2 H, Plt Count 259 11/15/21 08:05: Sodium 137, Potassium 3.3 L, BUN 15, Creatinine 1.79 H, Glucose 263 H Assessment and Plan - Problems (Diagnosis) (1) Acute respiratory failure with hypoxia Current Visit: Yes Status: Acute (2) Allergic bronchitis with acute exacerbation Current Visit: Yes Status: Acute (3) Morbid obesity Current Visit: Yes Status: Acute (4) Sinus tachycardia Current Visit: Yes Status: Acute - Plan Placed under observation on the medical floor. Scheduled bronchodilators-albuterol and ipratropium. IV Solu-Medrol Consult to pulmonary. No indication for antibiotics at this time. Oxygen therapy and titrate. Check hemoglobin A1c, TSH. - Advance Directives Does patient have a Living Will: No Does patient have a Durable POA for Healthcare: No
[2021-11-15] MEDS ORDERED: ONDANSETRON 4 MG/2 ML VIAL IV PRN (15:39)
[2021-11-15] MEDS: IPRATROPIUM BROM 0.5MG/2.5ML NEB SCH ×2 (15:39→20:00)
[2021-11-15] MEDS: ALBUTEROL 2.5 MG/3 ML NEB SOL NEB SCH ×2 (15:39→20:00)
[2021-11-15 15:58] VITALS: BMI 51.0
[2021-11-15] MEDS: ACETAMINOPHEN 500 MG TAB PO PRN (16:05)
[2021-11-15] MEDS ORDERED: POTASSIUM CL SA 10 MEQ TAB PO ONE (16:24)
[2021-11-15] MEDS ORDERED: PNEUMOCOCCAL VACCINE 0.5 ML IMVAC ONE (16:30)
[2021-11-15] MEDS: METHYLPREDNISOLONE 40 MG INJ IV SCH (17:11)
[2021-11-15] MEDS ORDERED: DIPHENHYDRAMINE 25 MG TAB/CAP PO PRN (19:02)
[2021-11-16] MEDS: METHYLPREDNISOLONE 40 MG INJ IV SCH ×4 (00:41→18:44)
[2021-11-16] MEDS: IPRATROPIUM BROM 0.5MG/2.5ML NEB SCH ×4 (01:25→19:50)
[2021-11-16] MEDS: ALBUTEROL 2.5 MG/3 ML NEB SOL NEB SCH ×4 (01:25→19:50)
[2021-11-16] MEDS: ACETAMINOPHEN 500 MG TAB PO PRN ×2 (05:38→09:18)
[2021-11-16 06:13] LABS: Hematocrit 46.4 % (36.0-45.0); Lymphocytes % 6.7 % (15.3-44.8); MPV 8.8 fL (7.6-11.3); RBC Red Blood Cell Count 5.27 M/uL (3.86-4.86)
[2021-11-16 06:39] LABS: Potassium 4.5 mmol/L (3.5-5.1)
[2021-11-16 06:40] LABS: Blood Morphology Comment NOT SEEN (NOT SEEN); Magnesium 2.1 mg/dL (1.8-2.4); Phosphorus 2.4 mg/dL (2.5-4.9); Platelet Estimate ADEQ; Thyroid Stimulating Hormone 0.35 uIU/mL (0.360-3.740)
[2021-11-16] MEDS: ENOXAPARIN 40 MG/0.4 ML SQ SCH (08:47)
[2021-11-16] MEDS ORDERED: FENTANYL CITR 100 MCG/2 ML IV PRN (10:04)
--- NOTE | 2021-11-16 10:22 | EKG ---
Test Date: 2021-11-15 Test Time: 08:20:22 Instrument Repair Specialist: MIGUEL A MEASUREMENT RESULTS: Intervals: Rate: 125 OR: 138 QRSD: 126 QT: 334 QTc: 482 Center: P: 43 OR: 138 QRS: -40 T: 32 INTERPRETIVE STATEMENTS: Sinus tachycardia Left axis deviation Right bundle branch block Abnormal ECG Compared to ECG 10/04/2021 20:02:31 Left-axis deviation now present Electronically Signed On 11-16-21 10:20:10 CDT by Dayo Simeon
--- NOTE | 2021-11-16 11:04 | RAD REPORT ---
EXAM DESCRIPTION: CT - Head Brain Wo Cont - 11/16/2021 10:38 am CLINICAL HISTORY: Intractable Headache COMPARISON: <Comparisons> TECHNIQUE: All CT scans are performed using dose optimization technique as appropriate and may inclu de automated exposure control or mA/KV adjustment according to patient size. FINDINGS: No intracranial hemorrhage, hydrocephalus or extra-axial fluid collection.No areas of brai n edema or evidence of midline shift. The paranasal sinuses and mastoids are clear. The calvarium is intact. IMPRESSION: No acute intracranial abnormality.
--- NOTE | 2021-11-16 12:04 | P.CNS ---
Date of Consult: 11/16/21 Reason for Consult: Shortness of breath Chief Complaint: Shortness of breath History of Present Illness: Patient is 66 years of age morbidly obese admitted with dyspnea disorder short of breath for quite some time still complains of some chest discomfort smoking history does not have a primary care physician Denies any fever or chills Allergies codeine Allergy (Verified 11/15/21 15:05) Anaphylaxis Home Medications: Budesonide/Formoterol Fumarate [Symbicort 160-4.5 Mcg Inhaler] 1 puff IH DAILY 11/15/21 Duloxetine [Cymbalta Dalayed Release Pellets] 20 mg PO DAILY 11/15/21 Montelukast [Singulair] 10 mg PO DAILY 11/15/21 Nebivolol HCl [Bystolic] 5 mg PO DAILY 11/15/21 Omeprazole [Prilosec] 40 mg PO DAILY 11/15/21 PARoxetine HCL [Paxil] 10 mg PO DAILY 11/15/21 Phentermine HCl 37.5 mg PO DAILY 11/15/21 Pravastatin Sodium 20 mg PO DAILY 11/15/21 hydroCHLOROthiazide [Hydrochlorothiazide*] 25 mg PO DAILY 11/15/21 - Past Medical/Surgical History -: Hypertension -: Seasonal allergies -: Hysterectomy - Family History Father Medical History: Cancer - Social History Smoking Status: Unknown if ever smoked Alcohol use: No CD- Drugs: No Caffeine use: Yes Place of Residence: Home Review of Systems 10-point ROS is otherwise unremarkable General: Weakness Respiratory: Shortness of Breath Physical Examination Temp Pulse Resp BP Pulse Ox 97.1 F 114 H 16 139/63 94 11/16/21 08:00 11/16/21 08:00 11/16/21 08:00 11/16/21 08:00 11/16/21 08:00 General: Alert, Oriented x3 Neck: Supple Respiratory: Clear to auscultation bilaterally Cardiovascular: No edema, Regular rate/rhythm, Normal S1 S2 Gastrointestinal: Normal bowel sounds, Soft and benign - Problems (1) Shortness of breath Current Visit: Yes Status: Acute Plan: Patient is 66 years of age morbidly obese admitted with dyspnea she has been dyspneic for quite some time also has some chest discomfort have underlying obesity related obstructive airways disease I recommend using an inhaled broncho dilator with steroids either Advair or Symbicort she does not see any physician only uses albuterol CT scan of the chest is negative there is no thromboembolism beats mildly hypoxic have underlying obstructive sleep apnea all work-up needs to be done as an outpatient including PFT and possible sleep study add a low- dose prednisone at time of discharge follow-up with me in 2-week (2) Headache Current Visit: Yes Status: Acute Plan: Patient complains of chronic severe right-sided persistent headache possibly migraine labs reviewed Qualifiers: Headache type: unspecified
[2021-11-16] MEDS ORDERED: ACETAMIN/CAFFEINE/BUTALB TAB PO ONE (12:24)
[2021-11-16] MEDS: FEXOFENADINE 180 MG TAB PO SCH (13:27)
[2021-11-16] MEDS: TRAMADOL HCL 50 MG TAB PO PRN (13:27)
--- NOTE | 2021-11-16 18:21 | P.PN ---
Subjective Date of Service: 11/16/21 Chief Complaint: Shortness of breath Patient complaining of severe headache. Her face is flushed. She is currently on 2 L oxygen by nasal cannula. She states that shortness of breath is better. Physical Examination - Vital Signs Temperature: 97.8 F Blood Pressure: 142/83 Pulse: 104 Respirations: 20 Pulse Ox (%): 93 Assessment And Plan - Current Problems (Diagnosis) (1) Acute respiratory failure with hypoxia Current Visit: Yes Status: Acute (2) Allergic bronchitis with acute exacerbation Current Visit: Yes Status: Acute (3) Morbid obesity Current Visit: Yes Status: Acute (4) Sinus tachycardia Current Visit: Yes Status: Acute (5) Headache Current Visit: Yes Status: Acute Qualifiers: Headache type: unspecified - Plan Physical Exam General: Alert, In no apparent distress, Obese HEENT: Mucous membr. moist/pink, EOMI, Sclerae nonicteric Neck: Supple, JVD not distended Respiratory: Diminished Bilaterally, no rhonchi or wheezes, no crackles. Cardiovascular: No edema, Normal S1 S2 (Tachycardia), No murmurs Gastrointestinal: Normal bowel sounds, Soft and benign, Non-distended, No tenderness Musculoskeletal: No swelling, No tenderness Integumentary: No cyanosis Neurological: Normal strength at 5/5 x4 extr Plan: Patient still relying on oxygen for shortness of breath. Suspect she also has obstructive sleep apnea. Pulmonary input appreciated Scheduled bronchodilators-albuterol and ipratropium. IV Solu-Medrol. Start Advair No indication for antibiotics at this time. Wean off oxygen as tolerated. TSH is mildly low-borderline hyperthyroid. Recheck TSH in 8 weeks. Fioricet and IV opioids as needed for migraine. Also started fexofenadine for allergies.
[2021-11-17] MEDS: METHYLPREDNISOLONE 40 MG INJ IV SCH ×2 (00:30→05:45)
[2021-11-17] MEDS: TRAMADOL HCL 50 MG TAB PO PRN ×4 (00:33→21:28)
[2021-11-17] MEDS: IPRATROPIUM BROM 0.5MG/2.5ML NEB SCH ×4 (02:10→19:55)
[2021-11-17] MEDS: ALBUTEROL 2.5 MG/3 ML NEB SOL NEB SCH ×2 (02:10→08:00)
[2021-11-17 05:58] LABS: Absolute Lymphocytes (CBC) 0.7 K/uL (0.7-4.9); Lymphocytes % 3.9 % (15.3-44.8); MCV 88.7 fL (80-100); MPV 9.1 fL (7.6-11.3); RBC Red Blood Cell Count 5.08 M/uL (3.86-4.86)
--- NOTE | 2021-11-17 06:04 | P.PN ---
Date of Service: 11/17/21 Subjective: tachycardic headache breathing more comfortably no new issues/worsening symptoms ROS: 10 point ROS as noted above, otherwise negative Physical exam GEN: Alert, oriented, NAD HEENT: Normal conjunctiva, sclera anicteric CV: sinus tachycardia, trace b/l pedal edema Pulm: Nonlabored respirations on 2L NC ABD: Soft, nontender, nondistended Integumentary: No rashes Neuro: Normal speech, normal affect, str 5/5 all extremities Problem List Acute hypoxemic respiratory failure Allergic bronchitis with acute exacerbation morbid obesity sinus tachycardia headache still requiring O2, wean as tolerated suspect KAYLI pulm consulted, dc'd albuterol continue nebs/inhalers PO steroids no evidence of sepsis / infection leukocytosis suspected secondary to steroids TSH - mildly low-borderline, recheck in ~8weeks Code: full Dispo: home, ~1-2 days wean O2 Time Spent Managing Pts Care (In Minutes): 35
[2021-11-17 06:13] LABS: Potassium 4.1 mmol/L (3.5-5.1)
[2021-11-17] MEDS: ENOXAPARIN 40 MG/0.4 ML SQ SCH (08:08)
[2021-11-17] MEDS: FEXOFENADINE 180 MG TAB PO SCH (08:09)
[2021-11-17] MEDS ORDERED: ALBUTEROL 2.5 MG/3 ML NEB SOL NEB PRN ×2 (08:41→14:00)
[2021-11-17] MEDS: predniSONE 20 MG TAB PO SCH ×2 (09:15→21:29)
--- NOTE | 2021-11-17 09:43 | ECHO ---
HEIGHT: 5 ft 3 in WEIGHT: 288 lb 0 oz DATE OF STUDY: 11/16/[address]: Luis Amin MD 2-DIMENSIONAL: YES M.MODE: YES DOPPLER: YES COLOR FLOW: YES TDS: YES PORTABLE: YES DEFINITY: BUBBLE STUDY: DIAGNOSIS: HYPOXIA/ TACHYCARDIA CARDIAC HISTORY: CATHERIZATION: SURGERY: PROSTHETIC VALVE: PACEMAKER: MEASUREMENTS (cm) DIASTOLIC (NORMALS) SYSTOLIC (NORMALS) IVSd 1.1 (0.6-1.2) LA Diam (1.9-4.0) LVEF 69% LVIDd 3.0 (3.5-5.7) LVIDs 1.9 (2.0-3.5) %FS 38% LVPWd 1.3 (0.6-1.2) Ao Diam 2.6 (2.0-3.7) 2 DIMENSIONAL ASSESSMENT: RIGHT ATRIUM: LEFT ATRIUM: RIGHT VENTRICLE: LEFT VENTRICLE: TRICUSPID VALVE: MITRAL VALVE: PULMONIC VALVE: AORTIC VALVE: PERICARDIAL EFFUSION: AORTIC ROOT: LEFT VENTRICULAR WALL MOTION: DOPPLER/COLOR FLOW: COMMENTS: TECHNICALLY DIFFICULT STUDY. GROSSLY NORMAL LEFT VENTRICULAR SIZE AND FUNCTION. NO EFFUSION. TECHNOLOGIST: LEÓN MCMANUS
[2021-11-17] MEDS: DULERA 200/5 (MOMETASONE/FORMOTEROL) INHALER IH SCH ×2 (10:05→21:29)
[2021-11-17 10:47] LABS: Blood Morphology Comment NOT SEEN (NOT SEEN); Platelet Estimate ADEQ; White Blood Cell Scan OK (OK)
--- NOTE | 2021-11-17 11:52 | P.PN ---
Subjective Date of Service: 11/17/21 Chief Complaint: Shortness of breath Subjective: Improving (Patient is doing much better still tachycardic) Review of Systems General: Weakness Respiratory: Shortness of Breath Physical Examination - Vital Signs Temperature: 96.9 F Blood Pressure: 129/71 Pulse: 98 Respirations: 18 Pulse Ox (%): 92 - Physical Exam General: Alert, In no apparent distress, Oriented x3 Respiratory: Clear to auscultation bilaterally Cardiovascular: No edema, Regular rate/rhythm, Normal S1 S2 Assessment And Plan - Current Problems (Diagnosis) (1) Shortness of breath Current Visit: Yes Status: Acute Plan: Patient's breathing has improved significantly plan to discharge home on Dulera or equivalent low-dose prednisone as outpatient pulmonary function testing doubt sepsis White count probably elevated from high doses of steroid tachycardia from bronchodilators stable for discharge (2) Headache Current Visit: Yes Status: Acute Plan: Patient complains of chronic severe right-sided persistent headache possibly migraine labs reviewed Qualifiers: Headache type: unspecified
[2021-11-18] MEDS: IPRATROPIUM BROM 0.5MG/2.5ML NEB SCH ×2 (01:20→08:00)
[2021-11-18 05:11] VITALS: O2SAT 96
--- NOTE | 2021-11-18 06:09 | P.PN ---
Date of Service: 11/18/21 Subjective: ROS: 10 point ROS as noted above, otherwise negative Physical exam GEN: Alert, oriented, NAD HEENT: Normal conjunctiva, sclera anicteric CV: sinus tachycardia, trace b/l pedal edema Pulm: Nonlabored respirations on 2L NC ABD: Soft, nontender, nondistended Integumentary: No rashes Neuro: Normal speech, normal affect, str 5/5 all extremities Problem List Acute hypoxemic respiratory failure Allergic bronchitis with acute exacerbation morbid obesity sinus tachycardia headache still requiring O2, wean as tolerated suspect KAYLI pulm consulted, dc'd albuterol continue nebs/inhalers PO steroids no evidence of sepsis / infection leukocytosis suspected secondary to steroids TSH - mildly low-borderline, recheck in ~8weeks Code: full Dispo: home, ~1-2 days wean O2 Time Spent Managing Pts Care (In Minutes): 35
[2021-11-18] MEDS: FEXOFENADINE 180 MG TAB PO SCH (09:05)
[2021-11-18] MEDS: DULERA 200/5 (MOMETASONE/FORMOTEROL) INHALER IH SCH (09:05)
[2021-11-18] MEDS: predniSONE 20 MG TAB PO SCH (09:05)
[2021-11-18] MEDS: TRAMADOL HCL 50 MG TAB PO PRN (09:06)
[2021-11-18] MEDS: ENOXAPARIN 40 MG/0.4 ML SQ SCH (09:06)
[2021-11-18 09:26] LABS: Potassium 4.5 mmol/L (3.5-5.1)
[2021-11-18 10:03] LABS: Absolute Lymphocytes (CBC) 2.2 K/uL (0.7-4.9); Hematocrit 44.1 % (36.0-45.0); Lymphocytes % 17.5 % (15.3-44.8); MCV 89.1 fL (80-100); MPV 9.9 fL (7.6-11.3); RBC Red Blood Cell Count 4.95 M/uL (3.86-4.86)
--- NOTE | 2021-11-18 11:21 | P.DS ---
Admission Date: 11/16/21 Discharge Date: 11/18/21 Disposition: ROUTINE DISCHARGE Discharge Condition: GOOD Reason for Admission: Shortness of breath Consultations: Pulmonology - Dr. Munore Hospital Course: Problem List Acute hypoxemic respiratory failure secondary to allergic bronchitis with acute exacerbation morbid obesity sinus tachycardia headache Patient presented with shortness of breath and wheezing. Pulmonology was consulted. No evidence of infection/sepsis. CT chest was negative for infection, mass, pneumonia, other acute process. Patient improved with steroids, nebulizers, and dulera inhaler for treatment of allergic bronchitis. She had improvement of her respirations and oxygenation. She was weaned off oxygen. She reported breathing more comfortably and ready for discharge home. She was deemed stable for discharge. To continue 4 more days of prednisone. Continue dulera. Continue rissa for 1 more week, then can use as needed. TSH level was borderline on low end. Recommend repeat testing in ~8 weeks. Follow up: PCP within 1 week Pulmonology - Dr. Munroe in ~1-2 weeks. Physical exam GEN: Alert, oriented, NAD CV: regular rate/rhythm, trace bilateral pedal edema Pulm: Nonlabored respirations on room air ABD: Soft, nontender, nondistended Neuro: Normal speech, normal affect, str 5/5 all extremities Vital Signs/Physical Exam: Temp Pulse Resp BP Pulse Ox 97.7 F 102 H 18 165/83 H 97 11/18/21 08:00 11/18/21 08:00 11/18/21 08:00 11/18/21 08:00 11/18/21 08:00 Laboratory Data at Discharge: WBC 12.50 K/uL (4.3-10.9) H D 11/18/21 09:00 Hgb 14.1 g/dL (12.0-15.0) 11/18/21 09:00 Hct 44.1 % (36.0-45.0) 11/18/21 09:00 Plt Count 217 K/uL (152-406) 11/18/21 09:00 Sodium 137 mmol/L (136-145) 11/18/21 09:00 Potassium 4.5 mmol/L (3.5-5.1) 11/18/21 09:00 BUN 31 mg/dL (7-18) H 11/18/21 09:00 Creatinine 1.01 mg/dL (0.55-1.3) 11/18/21 09:00 Glucose 205 mg/dL (74-106) H 11/18/21 09:00 Phosphorus 3.5 mg/dL (2.5-4.9) 11/17/21 05:21 Magnesium 2.1 mg/dL (1.8-2.4) 11/16/21 05:54 Triglycerides 84 mg/dL (<150) 11/16/21 05:54 Cholesterol 194 mg/dL (<200) 11/16/21 05:54 HDL Cholesterol 60 mg/dL (40-60) 11/16/21 05:54 Cholesterol/HDL Ratio 3.23 11/16/21 05:54 Home Medications: Budesonide/Formoterol Fumarate [Symbicort 160-4.5 Mcg Inhaler] 1 puff IH DAILY 11/15/21 Duloxetine [Cymbalta *] 20 mg PO DAILY 11/15/21 Montelukast [Singulair*] 10 mg PO DAILY 11/15/21 Nebivolol HCl [Bystolic*] 5 mg PO DAILY 11/15/21 Omeprazole [Prilosec] 40 mg PO DAILY 11/15/21 PARoxetine HCL [Paxil*] 10 mg PO DAILY 11/15/21 Phentermine HCl 37.5 mg PO DAILY 11/15/21 Pravastatin Sodium 20 mg PO DAILY 11/15/21 hydroCHLOROthiazide [Hydrochlorothiazide*] 25 mg PO DAILY 11/15/21 Mometasone/Formoterol [Dulera 200 Mcg/5 Mcg Inhaler] 2 puff IH BID inhaler 11/18/21 predniSONE [Prednisone*] 20 mg PO BID 4 Days #8 tab 11/18/21 New Medications: predniSONE [Prednisone*] 20 mg PO BID 4 Days #8 tab Physician Discharge Instructions: Patient presented with shortness of breath and wheezing. Pulmonology was consulted. No evidence of infection/sepsis. CT chest was negative for infection, mass, pneumonia, other acute process. Patient improved with steroids, nebulizers, and dulera inhaler for treatment of allergic bronchitis. She had improvement of her respirations and oxygenation. She was weaned off oxygen. She reported breathing more comfortably and ready for discharge home. She was deemed stable for discharge. To continue 4 more days of prednisone. Continue dulera. Continue rissa for 1 more week, then can use as needed. TSH level was borderline on low end. Recommend repeat testing in ~8 weeks. Follow up: PCP within 1 week Pulmonology - Dr. Munroe in ~1-2 weeks. Followup: Stan Munroe MD [ACTIVE - CAN ADMIT] - NONE,NONE [Primary Care Provider] - Time spent managing pt's care (in minutes): 45
[2021-11-18 12:03] VITALS: BP 130/75; TEMP 97
== END 2021-11-18 13:05 | disposition home or self-care (01) | DRG 202 ==
LOC: ER 07:39 → ERHOLD 12:55 → 2ND 15:09 → OBSVTOIN 11-16 18:22
PROVIDERS: ADMIT Internal Medicine; ATTEND Hospitalist
DX: J45.901 Unspecified asthma with (acute) exacerbation (principal); J96.01 Acute respiratory failure with hypoxia; Z68.43 Body mass index [BMI] 50.0-59.9, adult; E66.01 Morbid (severe) obesity due to excess calories; G47.33 Obstructive sleep apnea (adult) (pediatric); I10 Essential (primary) hypertension; I45.10 Unspecified right bundle-branch block; R00.0 Tachycardia, unspecified; R51.9 Headache, unspecified; Z23 Encounter for immunization; Z88.5 Allergy status to narcotic agent; Z79.51 Long term (current) use of inhaled steroids; Z79.52 Long term (current) use of systemic steroids; Z90.49 Acquired absence of other specified parts of digestive tract; Z79.899 Other long term (current) drug therapy; Z90.710 Acquired absence of both cervix and uterus; Z87.891 Personal history of nicotine dependence; Z20.822 Contact with and (suspected) exposure to COVID-19
CPT/HCPCS: 36415; 70450; 71045; 71275; 80048; 80061; 82805; 83036; 83735; 83880; 84100; 84132; 84443; 84484; 85025; 85379; 87040; 87811; 90471; 90732; 93005; 93306; 94640; 96361; 96365; 96375; 99285; G0378; J1650; J2920; J2930; J3475; J3535; J7040; J7512; J7614; Q9967

== ENCOUNTER 2022-04-17 13:15 | Emergency (ER) | payer OTHER ==
--- OUTSIDE RECORDS SUMMARY | 2022-04-17 13:19 | XMS REPORT | Continuity of Care Document ---
:1955 Author Organization [facility] t Address [address] [place] [address] Care Team Providers Name Role Phone Doctor Unassigned, [place] Attending Clinician Unavailable Pcp, Patient Does Not [...] 00:00: [place] reaction 00 Medical s to [place] drug Social History Social Habit Start Date Stop Date Quantity Comments Source Tobacco use and 2018-10-28 2018-10-28 Never used Universit y of exposure 00:00:00 00:00:00 [facility] Cigarettes smoked 2018-10-28 2018-10-28 Univers ity of current (pack per 00:00:00 00:00:00 [facility] ) - Reported Branch Cigarette 2018-10-28 2018-10-28 University of pack-years 00:00:00 00:00:00 [facility] Alcohol intake 2018-10-28 2018-10-28 University 00:00:00 00:00:00 [facility] History of tobacco 2007-07-11 Cigarette Smoker University use 00:00:00 [facility] Sex Assigned At [birth year] Universit y of 00:00:00 00:00:00 [facility] Smoking Status Start Date Stop Date Source Former smoker 2018-10-28 00:00:00 2018-10-28 [facility]:00[facility]00 [facility] Medications Ordered Filled Start Stop Current Ordering Indication Dosage Frequency Signature Comments Components Source Medication Medication Date Date Medication? Clinician (SIG) Name Name PAROXETINE Yes 40mg Take 40 mg U nivers HCL ORAL 8-10 by mouth. ity of 18:59: [address] [place] Yes Take by Uni vers sodium 8-10 mouth. ity of (SINGULAIR 18:59: [place] ORAL) [facility] PAROXETINE Yes 40mg Take 40 mg U nivers HCL ORAL 8-10 by mouth. ity of 18:59: [address] [facility] Yes Take by Uni vers sodium 8-10 mouth. ity of (SINGULAIR 18:59: [place] ORAL) [address] [place] [address] PAROXETINE Yes 40mg Take 40 mg U nivers HCL ORAL 8-10 by mouth. ity of 18:59: [address] Yes Take by Uni vers sodium 8-10 mouth. ity of (SINGULAIR 18:59: [place] ORAL) [address] [place] [address] IBUPROFEN Yes 2 tablets Uni vers 200 MG ORAL 8-10 po prn ity of CAP 18:57: [address] ATENOLOL 50 Yes 1 tablet Un ekta MG ORAL TAB 8-10 po daily ity of 18:57: [address] LIBRAX Yes 1 tablet Univers (WITH 8-10 po prn ity of CLIDINIUM) 18:57: [address] BUSPIRONE Yes 1/2 tablet Un ekta 15 MG ORAL 8-10 po prn ity of TAB 18:57: [address] FOLIC ACID Yes 1 tablet Uni vers 1 MG ORAL 8-10 po daily ity of TAB 18:57: [address] MULTIVITAMI 2019- Yes 1 tablet Un ekta N & MINERAL 8-10 po daily ity of FORMULA 18:57: [address] VITAMIN C 2019- Yes 1 tablet Univ ers 1,000 MG 8-10 po daily ity of ORAL TAB 18:57: [address] VITAMIN E 2018- Yes 1 tablet Univ ers 1,000 UNIT 8-10 po daily ity o f ORAL TAB 18:57: [address] IBUPROFEN 2018- Yes 2 tablets Uni vers 200 MG ORAL 8-10 po prn ity of CAP 18:57: [address] ATENOLOL 50 2018- Yes 1 tablet Un ekta MG ORAL TAB 8-10 po daily ity of 18:57: [address] LIBRAX Yes 1 tablet Univers (WITH 8-10 po prn ity of CLIDINIUM) 18:57: [address] BUSPIRONE Yes 1/2 tablet Un ekta 15 MG ORAL 8-10 po prn ity of TAB 18:57: [address] FOLIC ACID 2018- Yes 1 tablet Uni vers 1 MG ORAL 8-10 po daily ity of TAB 18:57: [address] MULTIVITAMI Yes 1 tablet Un ekta N & MINERAL 8-10 po daily ity of FORMULA 18:57: [address] VITAMIN C 2018- Yes 1 tablet Univ ers 1,000 MG 8-10 po daily ity of ORAL TAB 18:57: [address] VITAMIN E Yes 1 tablet Univ ers 1,000 UNIT 8-10 po daily ity o f ORAL TAB 18:57: [address] IBUPROFEN 2018- Yes 2 tablets Uni vers 200 MG ORAL 8-10 po prn ity of CAP 18:57: [address] ATENOLOL 50 2018- Yes 1 tablet Un ekta MG ORAL TAB 8-10 po daily ity of 18:57: [address] LIBRAX Yes 1 tablet Univers (WITH 8-10 po prn ity of CLIDINIUM) 18:57: [address] BUSPIRONE Yes 1/2 tablet Un ekta 15 MG ORAL 8-10 po prn ity of TAB 18:57: [address] FOLIC ACID Yes 1 tablet Uni vers 1 MG ORAL 8-10 po daily ity of TAB 18:57: [address] MULTIVITAMI Yes 1 tablet Un ekta N & MINERAL 8-10 po daily ity of FORMULA 18:57: [address] VITAMIN C Yes 1 tablet Univ ers 1,000 MG 8-10 po daily ity of ORAL TAB 18:57: [address] VITAMIN E Yes 1 tablet Univ ers 1,000 UNIT 8-10 po daily ity o f ORAL TAB 18:57: [address] neomycin-po 2019- No [id number] 1[drp] Place 1 Univers lymyxin-dex 8-10 11-05 [id number] Drop in it y of amethasone 00:00: 04:59 left eye 4 [place] 3.5mg/mL-10 00 :00 (four) Medica l ,000 times Branch unit/mL-0.1 daily for % 7 days. ophthalmic suspension drops nebivolol 2017-03 Yes [id number] 2.5mg Take 1 Un ekta 2.5 mg 0-26 tablet by ity of tablet 00:00: mouth [place] 00 daily. [facility] Branch meclizine 2017-03 Yes [id number] 25mg Take 1 Univers 25 mg 0-26 105 tablet by ity of tablet 00:00: mouth 3 [place] 00 (three) Medical times [place] daily as needed for Dizziness or Nausea. nebivolol 2017-03 Yes [id number] 2.5mg Take 1 Un ekta 2.5 mg 0-26 tablet by ity of tablet 00:00: mouth [place] 00 daily. [facility] Branch meclizine 2017-03 Yes [id number] 25mg Take 1 Univers 25 mg 0-26 105 tablet by ity of tablet 00:00: mouth 3 [place] 00 (three) Medical times [place] daily as needed for Dizziness or Nausea. nebivolol 2017-03 Yes [id number] 2.5mg Take 1 Un ekta 2.5 mg 0-26 tablet by ity of tablet 00:00: mouth [place] 00 daily. [facility] meclizine 2017-03 Yes [id number] 25mg Take 1 Univers 25 mg 0-26 105 tablet by ity of tablet 00:00: mouth 3 [place] 00 (three) Medical times [place] daily as needed for Dizziness or Nausea. Vital Signs Vital Name Observation Time Observation Value Comments Source Systolic blood 2018-10-28 18:53:00 123 mm[Hg] Univer sity of pressure [place] [facility] Diastolic blood 2018-10-28 18:53:00 69 mm[Hg] Unive rsity of pressure [place] [facility] Heart rate 2018-10-28 18:53:00 93 /min [facility] [place] [facility] Body temperature 2018-10-28 18:53:00 37.11 Sara Univ ers[facility] [place] [facility] Respiratory rate 2018-10-28 18:53:00 19 /min Univ [facility] [place] [facility] Body height 2018-10-28 18:53:00 160 cm [facility] [place] [facility] Body weight 2018-10-28 18:53:00 126.644 kg [facility] [place] [facility] BMI 2018-10-28 18:53:00 49.46 kg/m2 [facility] [place] [facility] Oxygen saturation in 2018-10-28 18:53:00 96 /min University of Arterial blood by [employer] Pulse oximetry Branch Systolic blood 2018-10-28 18:53:00 123 mm[Hg] Univer sity of pressure [place] [facility] Diastolic blood 2018-10-28 18:53:00 69 mm[Hg] Unive rsity of pressure [place] [facility] Heart rate 2018-10-28 18:53:00 93 /min [facility] [place] [facility] Body temperature 2018-10-28 18:53:00 37.11 Sara [facility] ersity of [place] [facility] Respiratory rate 2018-10-28 18:53:00 19 /min Univ ers[facility] [place] [facility] Body height 2018-10-28 18:53:00 160 cm [facility] [place] [facility] Body weight 2018-10-28 18:53:00 126.644 kg [facility] [place] [facility] BMI 2018-10-28 18:53:00 49.46 kg/m2 [facility] [place] [facility] Oxygen saturation in 2018-10-28 18:53:00 96 /min University of Arterial blood by [employer] Pulse oximetry Branch Procedures Procedure Date / Time Performed Performing Clinician [facility] e CLINIC RECORD / SMR 2020-11-03 05:01:00 Doctor Unassigned, No Un [facility] [place] Name Medical Branch Encounters Start End Encounter Admission Attending Care Care Encounter Source Date/Time Date/Time Type Type Clinicians Facility Department ID 2020-11-03 2020-11-03 Orders Doctor STEPHANIE [id number] Univers 00:00:00 00:00:00 Only Unassigned, LINDA [id number] ity of [place] [facility] [id number] Inderjit as [phone] [address] 2019-11-12 2019-11-12 Telephone Pcp, [facility] [id number] Univers 00:00:00 00:00:00 Patient Health [id number] it y of Does Not [place] [id number] [place] Have [place] Professio [phone] Mo dical nal 044 [place] Office [facility] 2019-11-12 2019-11-12 Telephone Pcp, [facility] [id number] 00:00:00 00:00:00 Patient Health [id number] Does Not [place] [id number] Have A Professio [phone] nal [facility] Office Building [facility] 2018-10-28 2018-10-28 [place], Ashley [facility] [id number] [facility] 13:37:02 13:59:00 Care Unknown, Attending Health [id number] ity of Surgical [id number] Inderjit as Specialti [phone] Mo dical es [address] [facility] 2018-10-28 2018-10-28 [place], [facility] [id number] 13:37:02 13:59:00 Care [facility] [id number] Surgical [id number] Specialti [phone] es [address] [place] Results This patient has no known results.
[2022-04-17 14:07] LABS: Absolute Lymphocytes (CBC) 2.5 K/uL (0.7-4.9); Hematocrit 42.9 % (36.0-45.0); Lymphocytes % 38.9 % (15.3-44.8); MCV 88.9 fL (80-100); MPV 7.9 fL (7.6-11.3); RBC Red Blood Cell Count 4.82 M/uL (3.86-4.86)
[2022-04-17 14:27] LABS: Magnesium 1.8 mg/dL (1.6-2.4); Potassium 3.8 mmol/L (3.5-5.1); Troponin High Sensitivity 7.5 pg/mL (<58.9)
--- NOTE | 2022-04-17 15:05 | RAD REPORT ---
EXAM DESCRIPTION: USExtrem Venous W Compress Bil04/17/2022 2:26 pm CLINICAL HISTORY: Leg pain COMPARISON: none FINDINGS: The common femoral, superficial femoral, greater saphenous, popliteal and posterior tibial veins bilaterally are compressible and demonstrate augmentation. Doppler demonstrates good flow. Grayscale, color and spectral analysis performed on all vessels IMPRESSION: No evidence of deep venous thrombosis involving either lower extremity.
--- NOTE | 2022-04-17 15:06 | RAD REPORT ---
EXAM DESCRIPTION: [place] Single View04/17/2022 2:17 pm CLINICAL HISTORY: Hypertension COMPARISON: October 2021 FINDINGS: The lungs appear clear of acute infiltrate. The heart is borderline enlarged IMPRESSION: No acute abnormalities displayed
[2022-04-17] MEDS ORDERED: FUROSEMIDE 40 MG/4 ML VIAL ONE (15:08)
--- NOTE | 2022-04-17 15:29 | EDPHYS ---
Physician Documentation [facility] Name: Genet Grijalva Age: 67 yrs Sex: Female : 1955 Arrival Date: 04/17/2022 Time: 13:19 Bed 7 Private MD: ED Physician Nadeem Schreiber HPI: 04/17 15:25 This 67 yrs old Female presents to ER via Ambulatory with complaints of Feet Swelling. kb 15:20 Treatment prior to arrival includes: no previous treatment. Severity of symptoms: At kb their worst the symptoms were moderate, in the emergency department the symptoms are unchanged. The patient has experienced similar episodes in the past. The patient has not recently seen a physician. Pt reports swelling to lower extremities for a week due to being out of her prescriptions. States she just wants a refill. Went to Urgent care and they wouldn't refill them because they thought she needed to be seen here. . 15:25 The patient presents with swelling. The complaints affect the right leg and left leg. kb Context: the patient can fully bear weight, the patient is able to ambulate. Onset: The symptoms/episode began/occurred 1 week(s) ago. Modifying factors: The symptoms are alleviated by nothing. the symptoms are aggravated by nothing. Associated signs and symptoms: Pertinent positives: swelling. Historical: - Allergies: 13:35 Codeine; ss - Home Meds: 13:35 Triamterene-Hydrochlorothiazid Oral 37.5-25 mg daily [Active]; Mirtazapine Oral 15 mg ss nightly [Active]; Breztri inhaler 160 mcg/9mcg/4.8 mcg [Active]; - PMHx: 13:35 allergies; Hypertension; ss - PSHx: 13:35 Cholecystectomy; hysterectomy; ss ROS: 15:26 Constitutional: Negative for fever, chills, and weight loss. kb 15:26 MS/extremity: Positive for swelling, of the right leg and left leg. 15:26 All other systems are negative. Exam: 14:20 ECG was reviewed by the Attending Physician. kb 15:26 Constitutional: This is a well developed, well nourished patient who is awake, alert, kb and in no acute distress. Head/Face: Normocephalic, atraumatic. ENT: Moist Mucous membranes Respiratory: Respirations even and unlabored. No increased work of breathing. Talking in full sentences Abdomen/GI: Soft, non-tender. No distention Skin: Warm, dry with normal turgor. Normal color. MS/ Extremity: Pulses equal, no cyanosis. Neurovascular intact. Full, normal range of motion. Neuro: Awake and alert, GCS 15, oriented to person, place, time, and situation. Moves all extremities. Normal gait. Psych: Awake, alert, with orientation to person, place and time. Behavior, mood, and affect are within normal limits. 15:26 Cardiovascular: Edema: 3+ edema to level of left ankle, left foot, right ankle and right foot. Vital Signs: 13:33 BP 153 / 79; Pulse 91; Resp 16; Temp 97.6(TE); Pulse Ox 95% on R/A; Weight 113.4 kg; ss Height 5 ft. 3 in. (160.02 cm); Pain 7/10; 14:08 BP 125 / 86; Pulse 113; Resp 20; Pulse Ox 96% on R/A; mb9 15:12 BP 125 / 89; Pulse 100; Resp 20; Pulse Ox 97% on R/A; mb9 13:33 Body Mass Index 44.29 (113.40 kg, 160.02 cm) ss MDM: 13:25 Patient medically screened. kb 15:20 Data reviewed: vital signs, nurses notes. kb 15:26 Differential diagnosis: DVT, volume overload, CHF. Consideration of kb Admission/Observation Escalation of care including admission/observation considered. Counseling: I had a detailed discussion with the patient and/or guardian regarding: the historical points, exam findings, and any diagnostic results supporting the discharge/admit diagnosis, lab results, radiology results, the need for outpatient follow up, a family practitioner, to return to the emergency department if symptoms worsen or persist or if there are any questions or concerns that arise at home. ED course: Pt 97% on room air, no resp distress. Lungs clear on auscultation and x-ray. Pt will follow up with PCP and/or pesticide applicator on outpatient basis and return for worsening symptoms or any other concerns. . 04/17 13:43 Order name: Basic Metabolic Panel; Complete Time: 14:34 kb 04/17 13:43 Order name: CBC with Diff; Complete Time: 14:14 kb 04/17 13:43 Order name: Magnesium; Complete Time: 14:34 kb 04/17 13:43 Order name: NT PRO-BNP; Complete Time: 14:34 kb 04/17 13:43 Order name: Troponin HS; Complete Time: 14:34 kb 04/17 13:43 Order name: XRAY Chest (1 view); Complete Time: 15:08 kb 04/17 13:43 Order name: EKG; Complete Time: 13:43 kb 04/17 13:43 Order name: Cardiac monitoring; Complete Time: 13:50 kb 04/17 13:43 Order name: EKG - Nurse/Tech; Complete Time: 13:50 kb 04/17 13:43 Order name: IV Saline Lock; Complete Time: 14:04 kb 04/17 13:43 Order name: Labs collected and sent; Complete Time: 14:04 kb 04/17 13:43 Order name: O2 Per Protocol; Complete Time: 13:52 kb 04/17 13:43 Order name: US Extremity Venous W Compression Michael; Complete Time: 15:08 kb 04/17 13:43 Order name: O2 Sat Monitoring; Complete Time: 13:52 kb EC:20 Rate is 88 beats/min. Rhythm is regular. QRS Fedora is Normal. MO interval is normal at kb 146 msec. QRS interval is normal at 132 msec. QT interval is normal at 474 msec. Administered Medications: 15:12 Drug: Lasix (furosemide) 40 mg Route: IVP; Site: right hand; mb9 15:34 Follow up: Response: No adverse reaction mb9 Disposition: 15:44 Co-signature as Attending Physician, Nadeem Schreiber MD I agree with the assessment and kdr plan of care. Disposition Summary: 04/17/22 15:28 Discharge Ordered Location: Home kb Condition: Stable kb Diagnosis - Edema, unspecified - peripheral kb Followup: kb - With: Emergency Department - When: As needed - Reason: Worsening of condition Followup: kb - With: Private Physician - When: 2 - 3 days - Reason: Recheck today's complaints, Continuance of care, Re-evaluation by your physician Discharge Instructions: - Discharge Summary Sheet kb - Edema, [id number] kb - Peripheral Edema kb Forms: - Medication Reconciliation Form kb - Thank You Letter kb - Antibiotic Education kb - Prescription Opioid Use kb Prescriptions: - [employer] 160-9-4.8 mcg/actuation Inhalation HFA aerosol inhaler - inhale 2 puff by INHALATION route 2 times per day; 1 Inhaler; Refills: 0, kb Product Selection Permitted - Triamterene-Hydrochlorothiazid 37.5-25 mg Oral Tablet - take 1 tablet by ORAL route once daily; 30 tablet; Refills: 0, Product kb Selection Permitted Signatures: Dispatcher [employer] Teresa Bean, Nadeem Blair MD MD kdr Smirch, Shelby, STEPHANIE RN ss Sara Hidalgo RN RN mb9
--- NOTE | 2022-04-17 15:29 | ER ---
Nurse's Notes [facility] [place] [facility] Name: Genet Grijalva Age: 67 yrs Sex: Female : 1955 Arrival Date: 04/17/2022 Time: 13:19 Bed 7 Private MD: Diagnosis: Edema, unspecified-peripheral Presentation: 04/17 13:33 Chief complaint: Patient states: requesting medication refill for BP medications and ss inhaler. Pt reports she has been feeling tired and c/o bilateral feet swelling x 1 week. Coronavirus screen: Client denies travel out of the [place] in the last 14 days. Ebola Screen: Patient denies exposure to infectious person. Patient denies travel to an Ebola-affected area in the 21 days before illness onset. Initial Sepsis Screen: Does the patient meet any 2 criteria? No. Patient's initial sepsis screen is negative. Does the patient have a suspected source of infection? No. Patient's initial sepsis screen is negative. Risk Assessment: Do you want to hurt yourself or someone else? Patient reports no desire to harm self or others. Onset of symptoms was April 10, 2022. 13:33 Method Of Arrival: Ambulatory ss 13:33 Acuity: DEO 3 ss Historical: - Allergies: 13:35 Codeine; ss - Home Meds: 13:35 Triamterene-Hydrochlorothiazid Oral 37.5-25 mg daily [Active]; Mirtazapine Oral 15 mg ss nightly [Active]; Breztri inhaler 160 mcg/9mcg/4.8 mcg [Active]; - PMHx: 13:35 allergies; Hypertension; ss - PSHx: 13:35 Cholecystectomy; hysterectomy; ss Screenin:26 [facility] ED Fall Risk Assessment (Adult) History of falling in the last 3 months, mb9 including since admission No falls in past 3 months (0 pts) Confusion or Disorientation No (0 pts) Intoxicated or Sedated No (0 pts) Impaired Gait No (0 pts) Mobility Assist Device Used No (0 pt) Altered Elimination No (0 pt) Score/Fall Risk Level 0 - 2 = Low Risk Oriented to surroundings. Abuse screen: Denies threats or abuse. Nutritional screening: No deficits noted. Tuberculosis screening: No symptoms or risk factors identified. Assessment: 13:45 General: Appears in no apparent distress. comfortable, Behavior is calm, cooperative, mb9 appropriate for age. 13:45 Pain: Complains of pain in right leg and left leg Pain does not radiate. Pain currently mb9 is 7 out of 10 on a pain scale. Quality of pain is described as aching, dull, Aggravated by increased activity, repositioning, weight bearing. Neuro: Tobar Agitation-Sedation Scale (RASS): 0 - Alert and Calm Level of Consciousness is awake, alert, obeys commands, Oriented to person, place, time, situation, Appropriate for age. Cardiovascular: Heart tones S1 S2 present Capillary refill < 3 seconds is brisk Patient's skin is warm and dry. Rhythm is regular. Cardiovascular: Pulses are 1+ in right posterior tibial artery, right dorsalis pedis artery, left posterior tibial artery and left dorsalis pedis artery Edema is 1+ to left foot and right foot pitting to left foot and right foot. Respiratory: Airway is patent Respiratory effort is even, unlabored, Respiratory pattern is regular, symmetrical, Breath sounds are clear bilaterally. GI: Abdomen is round non-distended, Bowel sounds present X 4 quads. Abd is soft and non tender X 4 quads. GI:. : No signs and/or symptoms were reported regarding the genitourinary system. EENT: No signs and/or symptoms were reported regarding the EENT system. Derm: Skin is pink, warm \T\ dry. Musculoskeletal: Range of motion: intact in all extremities, Swelling present in right leg and left leg. 14:09 Reassessment: Ultrasound at bedside. mb9 15:12 Reassessment: No changes from previously documented assessment. Patient and/or family mb9 updated on plan of care and expected duration. Pain level reassessed. Patient is alert, oriented x 3, equal unlabored respirations, skin warm/dry/pink. Patient states feeling better. Patient states symptoms have improved. Vital Signs: 13:33 BP 153 / 79; Pulse 91; Resp 16; Temp 97.6(TE); Pulse Ox 95% on R/A; Weight 113.4 kg; ss Height 5 ft. 3 in. (160.02 cm); Pain 7/10; 14:08 BP 125 / 86; Pulse 113; Resp 20; Pulse Ox 96% on R/A; mb9 15:12 BP 125 / 89; Pulse 100; Resp 20; Pulse Ox 97% on R/A; mb9 13:33 Body Mass Index 44.29 (113.40 kg, 160.02 cm) ED Course: 13:19 Patient arrived in ED. rg4 13:25 Teresa Bowling [facility]-C [facility] kb 13:25 Nadeem Schreiber MD is Attending Physician. kb 13:26 Sara Hidalgo, STEPHANIE is Primary Nurse. mb9 13:26 Arm band placed on. mb9 13:27 Placed in gown. Bed in low position. Call light in reach. Side rails up X 1. Client mb9 placed on continuous cardiac and pulse oximetry monitoring. NIBP monitoring applied. lastex thread winder on. 13:35 Triage completed. ss 13:51 Warm blanket given. Pillow given. Pulse ox on. NIBP on. mm9 13:51 EKG done, by ED staff, reviewed by Teresa LAM. mm9 14:00 Inserted saline lock: 22 gauge in right hand, using aseptic technique. Blood collected. mb9 14:00 No provider procedures requiring assistance completed. mb9 14:04 Basic Metabolic Panel Sent. mb9 14:04 CBC with Diff Sent. mb9 14:04 Magnesium Sent. mb9 14:05 NT PRO-BNP Sent. mb9 14:05 Troponin HS Sent. mb9 14:19 XRAY Chest (1 view) In Process Unspecified. EDMS 14:28 US Extremity Venous W Compression Michael In Process Unspecified. EDMS 15:34 IV discontinued, intact, bleeding controlled, No redness/swelling at site. Pressure mb9 dressing applied. Administered Medications: 15:12 Drug: Lasix (furosemide) 40 mg Route: IVP; Site: right hand; mb9 15:34 Follow up: Response: No adverse reaction mb9 Medication: 13:27 VIS not applicable for this client. mb9 Outcome: 15:28 Discharge ordered by . kb 15:34 Discharged to home ambulatory. mb9 15:34 Condition: stable 15:34 Discharge instructions given to patient, Instructed on discharge instructions, follow up and referral plans. Demonstrated understanding of instructions, follow-up care, medications, Prescriptions given X 2. 15:40 Patient left the ED. mb9 Signatures: Dispatcher [employer] EDMS Teresa Bowling FNP-C FNP-Ckb Smirch, Shelby, RN RN ss Homer, Emily esars4 Eli Patterson mm9 Gwen, Sara Marmolejo, RN RN mb9
[2022-04-17 15:53] VITALS: TEMP 97.6
[2022-04-17 16:04] VITALS: BP 125/89; O2SAT 97
== END 2022-04-17 15:40 | disposition home or self-care (01) ==
LOC: ER 13:15
DX: R60.9 Edema, unspecified (principal); I10 Essential (primary) hypertension; Z88.5 Allergy status to narcotic agent
CPT/HCPCS: 85025; 80048; 36415; 83735; 84484; 83880; 71045; 93970; J1940; 93005; 96374; 99284